=== PATIENT | male | born 1965 | race Caucasian/White ===

== ENCOUNTER 2021-03-01 14:39 | Emergency (ER) | payer MEDICAID ==
[~2021-03-01] VITALS: Ht 175.3 cm; Wt 68.2 kg
[2021-03-01] MEDS ORDERED: OLAN10TA74 PO (14:52)
[2021-03-01] MEDS ORDERED: OLAN2.5T29 PO (14:52)
[2021-03-01 20:27] LABS: BASOPHILS % (AUTO) 0.9 % (0.0-2.0); EOSINOPHILS % (AUTO) 1.9 % (1.0-6.0); HEMATOCRIT 35.2 % (41-53); HEMOGLOBIN 11.7 g/dL (13.5-17.5); LYMPHOCYTES # (AUTO) 1.8 K/uL (1.0-4.8); LYMPHOCYTES % (AUTO) 30.5 % (22.0-44.0); MEAN CORPUSCULAR HEMOGLOBIN 32.2 pg (26.0-34.0); MEAN CORPUSCULAR HGB CONC 33.2 G/dL (31.0-37.0); MEAN CORPUSCULAR VOLUME 97 fL (80-100); MONOCYTES # (AUTO) 0.4 K/uL (0.1-1.0); MONOCYTES % (AUTO) 7.6 % (2.0-9.0); NEUTROPHILS # (AUTO) 3.5 K/uL (1.8-7.7); NEUTROPHILS % (AUTO) 59.1 % (40.0-70.0); PLATELET COUNT (AUTO) 239 K/uL (150-450); RED BLOOD CELL COUNT(AUTO) 3.62 MIL/uL (4.50-5.90); RED CELL DISTRIBUTION WIDTH 14.8 % (11.5-14.5)
[2021-03-01 20:30] VITALS: BP 118/64
[2021-03-01 20:36] LABS: ANION GAP 7 mmol/L (8-16); CALCIUM, TOTAL 8.4 mg/dL (8.8-10.5); CARBON DIOXIDE 25 mmol/L (22-29); CHLORIDE 108 mmol/L (98-107); CREATININE 0.75 mg/dL (0.60-1.30); GLOMERULAR FILTR. RATE CALC > 60 mL/min (>60); GLUCOSE,RANDOM 78 mg/dL (70-110); POTASSIUM 3.6 mmol/L (3.5-5.1); SODIUM SERUM 140 mmol/L (136-145); UREA NITROGEN, BLOOD 11 mg/dL (7-18)
[2021-03-01 20:40] LABS: PROTHROMBIN TIME 11.1 SEC (9.4-11.6)
[2021-03-01 20:46] LABS: B-TYPE NATRIURETIC PEPTIDE 39 pg/mL (0-100)
[2021-03-01 21:01] LABS: ALANINE AMINOTRANSFERASE 20 U/L (12-78); ALKALINE PHOSPHATASE 70 U/L (46-116); ASPARTATE AMINOTRANSFERASE 22 U/L (15-37); BILIRUBIN,TOTAL 0.5 mg/dL (0.1-1.0); CREATINE KINASE, TOTAL ONLY 200 U/L (39-308); TOTAL PROTEIN, SERUM 6.1 g/dL (6.4-8.2)
== END 2021-03-01 22:33 | disposition home or self-care (01) ==
LOC: EMS 14:48
DX: E46 Unspecified protein-calorie malnutrition (principal); R60.0 Localized edema
CPT/HCPCS: 71045; 80053; 82550; 83880; 84484; 85025; 85610; 85730; 93005; 93970; 99285

== ENCOUNTER 2021-03-11 15:46 | Inpatient (IN) | payer MEDICARE, MEDICAID ==
[~2021-03-11] VITALS: Ht 175.3 cm; Wt 78.1 kg
[~2021-03-11 15:46] MED LIST: OLAN10TA74 PO; OLAN2.5T29 PO
[2021-03-11 16:40] LABS: BASOPHILS % (AUTO) 0.6 % (0.0-2.0); EOSINOPHILS % (AUTO) 0.7 % (1.0-6.0); HEMATOCRIT 36.8 % (41-53); LYMPHOCYTES # (AUTO) 1.6 K/uL (1.0-4.8); LYMPHOCYTES % (AUTO) 24.2 % (22.0-44.0); MEAN CORPUSCULAR HEMOGLOBIN 31.5 pg (26.0-34.0); MEAN CORPUSCULAR HGB CONC 32.7 G/dL (31.0-37.0); MEAN CORPUSCULAR VOLUME 97 fL (80-100); MONOCYTES # (AUTO) 0.4 K/uL (0.1-1.0); MONOCYTES % (AUTO) 6.4 % (2.0-9.0); NEUTROPHILS # (AUTO) 4.5 K/uL (1.8-7.7); NEUTROPHILS % (AUTO) 68.1 % (40.0-70.0); PLATELET COUNT (AUTO) 314 K/uL (150-450); RED BLOOD CELL COUNT(AUTO) 3.82 MIL/uL (4.50-5.90); RED CELL DISTRIBUTION WIDTH 14.9 % (11.5-14.5)
[2021-03-11 16:41] LABS: COVID AG,FIA SOURCE NASOPHARYNGEAL
[2021-03-11 16:49] LABS: ANION GAP 3 mmol/L (8-16); CALCIUM, TOTAL 8.3 mg/dL (8.8-10.5); CARBON DIOXIDE 25 mmol/L (22-29); CHLORIDE 106 mmol/L (98-107); CREATININE 0.82 mg/dL (0.60-1.30); GLOMERULAR FILTR. RATE CALC > 60 mL/min (>60); GLUCOSE,RANDOM 85 mg/dL (70-110); POTASSIUM 4.2 mmol/L (3.5-5.1); SODIUM SERUM 134 mmol/L (136-145); UREA NITROGEN, BLOOD 16 mg/dL (7-18)
[2021-03-11 16:54] LABS: ALANINE AMINOTRANSFERASE 30 U/L (12-78); ALBUMIN 2.9 g/dL (3.4-5.0); ALKALINE PHOSPHATASE 67 U/L (46-116); ASPARTATE AMINOTRANSFERASE 23 U/L (15-37); BILIRUBIN,TOTAL 0.5 mg/dL (0.1-1.0); TOTAL PROTEIN, SERUM 6.1 g/dL (6.4-8.2)
[2021-03-12 01:32] LABS: CHOL/HDL RATIO 3.8 (4.2-7.3); CHOLESTEROL 151 mg/dL (131-200); HDL CHOLESTEROL 40 mg/dL (40-60); LDL CHOL (CALC.) 101 mg/dL (0-130); TRIGLYCERIDES 52 mg/dL (15-150)
[2021-03-12] MEDS: LORazepam 2 MG TABLET PO PRN ×2 (04:06→17:55)
[2021-03-12] MEDS: HALOPERIDOL 5 MG TABLET PO PRN ×2 (04:06→17:55)
[2021-03-12] MEDS ORDERED: ACETAMINOPHEN 325 MG TABLET PO ONE (13:30)
[2021-03-13] MEDS ORDERED: NICOTINE 14 MG/24 HOUR PATCH TD PRN (07:30)
[2021-03-13] MEDS ORDERED: ONDANSETRON HCL 4 MG TABLET PO PRN (07:30)
[2021-03-13] MEDS ORDERED: MAGNESIUM HYDROXIDE SUSPENSION 30 ML UDCUP PO PRN (07:30)
[2021-03-13] MEDS ORDERED: GuaiFENesin/D-METHORPHAN [SUGAR-FREE] 200-20MG/10 ML SYRUP UDCUP PO PRN (07:30)
[2021-03-13] MEDS ORDERED: PETROLATUM,WHITE 28 GM JELLY TP PRN (07:30)
[2021-03-13] MEDS ORDERED: ALBUTEROL SULFATE HFA 90 MCG/PUFF 8 GM INHALER IH PRN (07:30)
[2021-03-13] MEDS ORDERED: CloNIDine HCL 0.1 MG TABLET PO PRN (07:30)
[2021-03-13] MEDS ORDERED: LOPERAMIDE HCL 2 MG CAPSULE PO PRN (07:30)
[2021-03-13] MEDS ORDERED: DOCUSATE SODIUM 100 MG CAPSULE PO PRN (07:30)
[2021-03-13] MEDS: HALOPERIDOL 5 MG TABLET PO PRN ×2 (08:16→12:49)
[2021-03-13] MEDS: LORazepam 2 MG TABLET PO PRN ×2 (08:16→12:49)
[2021-03-13] MEDS: NICOTINE 14 MG/24 HOUR PATCH TD SCH (08:17)
[2021-03-13] MEDS ORDERED: NICOTINE 21 MG/24 HOUR PATCH TD SCH (09:00)
[2021-03-13 09:21] VITALS: BP 108/61
[2021-03-13] MEDS ORDERED: OLANZapine 2.5 MG TABLET PO SCH (10:00)
[2021-03-13] MEDS: OLANZapine 2.5 MG TABLET PO SCH (15:25)
[2021-03-13 16:11] VITALS: BP 102/72
[2021-03-13] MEDS: OLANZapine 10 MG TABLET PO SCH (20:34)
[2021-03-14 03:38] VITALS: BP 110/68
[2021-03-14 08:18] VITALS: BP 106/76
[2021-03-14] MEDS ORDERED: OLANZapine 2.5 MG TABLET PO SCH (09:00)
[2021-03-14] MEDS: OLANZapine 2.5 MG TABLET PO SCH (09:07)
[2021-03-14] MEDS: NICOTINE 14 MG/24 HOUR PATCH TD SCH (09:07)
[2021-03-14] MEDS: LORazepam 2 MG TABLET PO PRN (13:28)
[2021-03-14 16:27] VITALS: BP 101/63
[2021-03-14] MEDS: OLANZapine 10 MG TABLET PO SCH (20:34)
[2021-03-15 00:57] VITALS: BP 108/72
[2021-03-15] MEDS: LORazepam 2 MG TABLET PO PRN (08:58)
[2021-03-15] MEDS: OLANZapine 2.5 MG TABLET PO SCH (08:58)
[2021-03-15] MEDS: NICOTINE 14 MG/24 HOUR PATCH TD SCH (08:59)
[2021-03-15 09:32] VITALS: BP 116/72
[2021-03-15 16:18] VITALS: BP 119/66
[2021-03-15] MEDS: OLANZapine 10 MG TABLET PO SCH (20:12)
[2021-03-16 03:55] VITALS: BP 112/68
[2021-03-16] MEDS: LORazepam 2 MG TABLET PO PRN ×3 (05:57→20:05)
[2021-03-16] MEDS: OLANZapine 2.5 MG TABLET PO SCH (08:32)
[2021-03-16] MEDS: NICOTINE 14 MG/24 HOUR PATCH TD SCH (08:33)
[2021-03-16 09:41] VITALS: BP 117/85
[2021-03-16] MEDS ORDERED: HALOPERIDOL LACTATE 5 MG/ML VIAL IM ONE (10:15)
[2021-03-16] MEDS ORDERED: DiphenhydrAMINE HCL 50 MG/ML VIAL IM ONE (10:15)
[2021-03-16] MEDS ORDERED: LORazepam 2 MG/ML VIAL IM ONE (10:15)
[2021-03-16] MEDS: BACITRACIN 28 GM OINTMENT TP SCH ×2 (12:54→16:02)
[2021-03-16] MEDS: MAG HYDROX/AL HYDROX/SIMETH ES 30 ML SUSPENSION UDCUP PO PRN (13:27)
[2021-03-16] MEDS: HALOPERIDOL 5 MG TABLET PO PRN (16:01)
[2021-03-16 16:25] VITALS: BP 104/64
[2021-03-16] MEDS: OLANZapine 10 MG TABLET PO SCH (20:05)
[2021-03-17 00:39] VITALS: BP 112/87
[2021-03-17] MEDS: ZOLPIDEM TARTRATE 10 MG TABLET PO PRN (00:45)
[2021-03-17] MEDS: IBUPROFEN 400 MG TABLET PO PRN (00:46)
[2021-03-17 08:21] VITALS: BP 111/68
[2021-03-17] MEDS: LORazepam 2 MG TABLET PO PRN ×2 (08:30→16:20)
[2021-03-17] MEDS: OLANZapine 5 MG TABLET PO SCH (08:58)
[2021-03-17] MEDS: NICOTINE 14 MG/24 HOUR PATCH TD SCH (08:58)
[2021-03-17] MEDS: BACITRACIN 28 GM OINTMENT TP SCH ×4 (09:03→16:24)
[2021-03-17] MEDS ORDERED: BACITRACIN 28 GM OINTMENT TP SCH (10:30)
[2021-03-17 16:13] VITALS: BP 105/67
[2021-03-17] MEDS: HALOPERIDOL 5 MG TABLET PO PRN (16:20)
[2021-03-17] MEDS: OLANZapine 10 MG TABLET PO SCH (20:17)
[2021-03-18 04:37] VITALS: BP 114/72
[2021-03-18] MEDS: OLANZapine 5 MG TABLET PO SCH (07:58)
[2021-03-18] MEDS: NICOTINE 14 MG/24 HOUR PATCH TD SCH (07:59)
[2021-03-18] MEDS: LORazepam 2 MG TABLET PO PRN ×3 (08:04→17:17)
[2021-03-18 08:38] VITALS: BP 115/82
[2021-03-18] MEDS: BACITRACIN 28 GM OINTMENT TP SCH ×4 (08:47→17:04)
[2021-03-18] MEDS: HALOPERIDOL 5 MG TABLET PO PRN ×2 (14:37→19:05)
[2021-03-18 16:20] VITALS: BP 104/65
[2021-03-18] MEDS: MAG HYDROX/AL HYDROX/SIMETH ES 30 ML SUSPENSION UDCUP PO PRN (18:44)
[2021-03-18] MEDS: OLANZapine 10 MG TABLET PO SCH (20:28)
[2021-03-18] MEDS: ZOLPIDEM TARTRATE 10 MG TABLET PO PRN (20:29)
[2021-03-19 04:08] VITALS: BP 107/70
[2021-03-19] MEDS: MULTIVITAMINS WITH MINERALS, THERAPEUTIC TABLET PO SCH (08:21)
[2021-03-19] MEDS: NICOTINE 14 MG/24 HOUR PATCH TD SCH (08:21)
[2021-03-19] MEDS: OLANZapine 5 MG TABLET PO SCH (08:21)
[2021-03-19] MEDS: LORazepam 2 MG TABLET PO PRN (08:21)
[2021-03-19] MEDS: BACITRACIN 28 GM OINTMENT TP SCH ×4 (08:26→16:19)
[2021-03-19 08:44] VITALS: BP 121/78
[2021-03-19] MEDS: HALOPERIDOL 5 MG TABLET PO PRN ×3 (09:14→23:41)
[2021-03-19 16:07] VITALS: BP 105/76
[2021-03-19] MEDS: OLANZapine 10 MG RAPDIS TABLET PO SCH (20:30)
[2021-03-20 01:09] VITALS: BP 121/87
[2021-03-20] MEDS: MULTIVITAMINS WITH MINERALS, THERAPEUTIC TABLET PO SCH (08:01)
[2021-03-20] MEDS: OLANZapine 5 MG RAPDIS TABLET PO SCH (08:01)
[2021-03-20] MEDS: LORazepam 2 MG TABLET PO PRN ×2 (08:01→22:55)
[2021-03-20] MEDS: NICOTINE 14 MG/24 HOUR PATCH TD SCH (08:05)
[2021-03-20] MEDS: BACITRACIN 28 GM OINTMENT TP SCH ×2 (08:05→17:02)
[2021-03-20 08:30] VITALS: BP 103/71
[2021-03-20 13:00] VITALS: BP 110/74
[2021-03-20] MEDS: HALOPERIDOL 5 MG TABLET PO PRN ×2 (13:02→22:55)
[2021-03-20 17:19] VITALS: BP 100/70
[2021-03-20] MEDS: OLANZapine 10 MG RAPDIS TABLET PO SCH (20:02)
[2021-03-21 00:34] VITALS: BP 120/85
[2021-03-21] MEDS: LORazepam 2 MG TABLET PO PRN ×2 (03:12→20:42)
[2021-03-21] MEDS: HALOPERIDOL 5 MG TABLET PO PRN ×2 (03:12→10:57)
[2021-03-21 08:14] VITALS: BP 107/71
[2021-03-21] MEDS: NICOTINE 14 MG/24 HOUR PATCH TD SCH (08:36)
[2021-03-21] MEDS: MULTIVITAMINS WITH MINERALS, THERAPEUTIC TABLET PO SCH (08:36)
[2021-03-21] MEDS: OLANZapine 5 MG RAPDIS TABLET PO SCH (08:36)
[2021-03-21] MEDS: BACITRACIN 28 GM OINTMENT TP SCH ×2 (08:36→16:49)
[2021-03-21] MEDS ORDERED: HALOPERIDOL LACTATE 5 MG/ML VIAL ONE (14:54)
[2021-03-21] MEDS ORDERED: LORazepam 2 MG/ML VIAL ONE (14:54)
[2021-03-21] MEDS ORDERED: DiphenhydrAMINE HCL 50 MG/ML VIAL ONE (14:54)
[2021-03-21] MEDS ORDERED: LORazepam 2 MG/ML VIAL IM ONE (15:00)
[2021-03-21] MEDS ORDERED: DiphenhydrAMINE HCL 50 MG/ML VIAL IM ONE (15:00)
[2021-03-21] MEDS ORDERED: HALOPERIDOL LACTATE 5 MG/ML VIAL IM ONE (15:00)
[2021-03-21 16:19] VITALS: BP 121/82
[2021-03-21] MEDS: ZOLPIDEM TARTRATE 10 MG TABLET PO PRN (20:42)
[2021-03-21] MEDS: OLANZapine 10 MG RAPDIS TABLET PO SCH (20:56)
[2021-03-22 04:30] VITALS: BP 117/72
[2021-03-22] MEDS: LORazepam 2 MG TABLET PO PRN ×2 (08:15→16:57)
[2021-03-22] MEDS: NICOTINE 14 MG/24 HOUR PATCH TD SCH (08:51)
[2021-03-22] MEDS: OLANZapine 10 MG RAPDIS TABLET PO SCH ×2 (08:51→21:32)
[2021-03-22] MEDS: BACITRACIN 28 GM OINTMENT TP SCH ×2 (08:51→17:09)
[2021-03-22] MEDS: MULTIVITAMINS WITH MINERALS, THERAPEUTIC TABLET PO SCH ×2 (08:51→21:32)
[2021-03-22 09:15] VITALS: BP 107/71
[2021-03-22] MEDS: IBUPROFEN 400 MG TABLET PO PRN (10:15)
[2021-03-22] MEDS: HALOPERIDOL 5 MG TABLET PO PRN ×2 (10:15→16:57)
[2021-03-22 16:24] VITALS: BP 102/70
[2021-03-23 05:00] VITALS: BP 111/61
[2021-03-23] MEDS: ACETAMINOPHEN 325 MG TABLET PO PRN ×2 (05:01→16:04)
[2021-03-23] MEDS: HALOPERIDOL 5 MG TABLET PO PRN ×2 (06:42→14:37)
[2021-03-23] MEDS: LORazepam 2 MG TABLET PO PRN ×3 (06:42→15:58)
[2021-03-23] MEDS: NICOTINE 14 MG/24 HOUR PATCH TD SCH (08:09)
[2021-03-23] MEDS: OLANZapine 10 MG RAPDIS TABLET PO SCH ×2 (08:09→20:28)
[2021-03-23] MEDS: BACITRACIN 28 GM OINTMENT TP SCH ×2 (08:18→16:04)
[2021-03-23 08:23] VITALS: BP 138/86
[2021-03-23] MEDS: MAG HYDROX/AL HYDROX/SIMETH ES 30 ML SUSPENSION UDCUP PO PRN (09:37)
[2021-03-23 16:46] VITALS: BP 114/74
[2021-03-23] MEDS: VALPROIC ACID 250 MG/5 ML SOLUTION UDCUP PO SCH (20:29)
[2021-03-23] MEDS: ZOLPIDEM TARTRATE 10 MG TABLET PO PRN (20:44)
[2021-03-24 05:26] VITALS: BP 107/68
[2021-03-24] MEDS: LORazepam 2 MG TABLET PO PRN ×2 (08:15→13:14)
[2021-03-24 08:34] VITALS: BP 142/84
[2021-03-24] MEDS: NICOTINE 14 MG/24 HOUR PATCH TD SCH (08:35)
[2021-03-24] MEDS: VALPROIC ACID 250 MG/5 ML SOLUTION UDCUP PO SCH ×2 (08:35→21:33)
[2021-03-24] MEDS: OLANZapine 10 MG RAPDIS TABLET PO SCH ×2 (08:35→21:33)
[2021-03-24] MEDS: MULTIVITAMINS WITH MINERALS, THERAPEUTIC TABLET PO SCH (08:35)
[2021-03-24] MEDS: BACITRACIN 28 GM OINTMENT TP SCH ×2 (08:36→16:10)
[2021-03-24] MEDS: HALOPERIDOL 5 MG TABLET PO PRN ×4 (10:10→23:54)
[2021-03-24 16:19] VITALS: BP 114/79
[2021-03-24] MEDS: ZOLPIDEM TARTRATE 10 MG TABLET PO PRN (23:55)
[2021-03-25 00:07] VITALS: BP 115/76
[2021-03-25] MEDS: HALOPERIDOL 5 MG TABLET PO PRN ×2 (08:05→13:18)
[2021-03-25] MEDS: LORazepam 2 MG TABLET PO PRN ×2 (08:05→14:05)
[2021-03-25 08:30] VITALS: BP 110/82
[2021-03-25] MEDS: VALPROIC ACID 250 MG/5 ML SOLUTION UDCUP PO SCH ×2 (08:39→20:12)
[2021-03-25] MEDS: MULTIVITAMINS WITH MINERALS, THERAPEUTIC TABLET PO SCH (08:39)
[2021-03-25] MEDS: OLANZapine 10 MG RAPDIS TABLET PO SCH ×2 (08:39→20:12)
[2021-03-25] MEDS: NICOTINE 14 MG/24 HOUR PATCH TD SCH (08:42)
[2021-03-25] MEDS: BACITRACIN 28 GM OINTMENT TP SCH ×2 (08:42→16:09)
[2021-03-25 19:41] VITALS: BP 106/70
[2021-03-25] MEDS: ZOLPIDEM TARTRATE 10 MG TABLET PO PRN (20:12)
[2021-03-26 04:54] VITALS: BP 120/78
[2021-03-26] MEDS: LORazepam 2 MG TABLET PO PRN (08:00)
[2021-03-26] MEDS: BACITRACIN 28 GM OINTMENT TP SCH ×2 (08:29→16:26)
[2021-03-26] MEDS: NICOTINE 14 MG/24 HOUR PATCH TD SCH (08:29)
[2021-03-26] MEDS: VALPROIC ACID 250 MG/5 ML SOLUTION UDCUP PO SCH ×2 (08:29→20:00)
[2021-03-26] MEDS: OLANZapine 10 MG RAPDIS TABLET PO SCH ×2 (08:29→20:00)
[2021-03-26] MEDS: MULTIVITAMINS WITH MINERALS, THERAPEUTIC TABLET PO SCH (08:29)
[2021-03-26 08:36] VITALS: BP 130/79
[2021-03-26] MEDS: HALOPERIDOL 5 MG TABLET PO PRN ×2 (09:21→13:37)
[2021-03-26 16:21] VITALS: BP 116/76
[2021-03-27 01:50] VITALS: BP 124/78
[2021-03-27] MEDS: HALOPERIDOL 5 MG TABLET PO PRN ×2 (08:05→13:54)
[2021-03-27] MEDS: LORazepam 2 MG TABLET PO PRN (08:05)
[2021-03-27] MEDS: NICOTINE 14 MG/24 HOUR PATCH TD SCH (08:33)
[2021-03-27] MEDS: BACITRACIN 28 GM OINTMENT TP SCH ×2 (08:33→16:14)
[2021-03-27] MEDS: OLANZapine 10 MG RAPDIS TABLET PO SCH ×2 (08:33→20:06)
[2021-03-27] MEDS: MULTIVITAMINS WITH MINERALS, THERAPEUTIC TABLET PO SCH (08:33)
[2021-03-27] MEDS: VALPROIC ACID 250 MG/5 ML SOLUTION UDCUP PO SCH ×2 (08:33→20:06)
[2021-03-27] MEDS: MAG HYDROX/AL HYDROX/SIMETH ES 30 ML SUSPENSION UDCUP PO PRN (14:13)
[2021-03-27 16:23] VITALS: BP 114/71
[2021-03-27] MEDS: IBUPROFEN 400 MG TABLET PO PRN (21:43)
[2021-03-28] MEDS: HALOPERIDOL 5 MG TABLET PO PRN ×3 (00:16→19:17)
[2021-03-28 06:30] VITALS: BP 110/66
[2021-03-28] MEDS: OLANZapine 10 MG RAPDIS TABLET PO SCH ×2 (08:20→21:04)
[2021-03-28] MEDS: VALPROIC ACID 250 MG/5 ML SOLUTION UDCUP PO SCH ×3 (08:20→21:04)
[2021-03-28] MEDS: NICOTINE 14 MG/24 HOUR PATCH TD SCH (08:20)
[2021-03-28] MEDS: MULTIVITAMINS WITH MINERALS, THERAPEUTIC TABLET PO SCH (08:20)
[2021-03-28 08:31] VITALS: BP 121/78
[2021-03-28] MEDS: BACITRACIN 28 GM OINTMENT TP SCH ×2 (09:57→17:43)
[2021-03-28] MEDS: IBUPROFEN 400 MG TABLET PO PRN (13:30)
[2021-03-28 16:25] VITALS: BP 117/78
[2021-03-29 00:12] VITALS: BP 120/79
[2021-03-29] MEDS: OLANZapine 10 MG RAPDIS TABLET PO SCH ×2 (08:03→21:27)
[2021-03-29] MEDS: NICOTINE 14 MG/24 HOUR PATCH TD SCH (08:03)
[2021-03-29] MEDS: VALPROIC ACID 250 MG/5 ML SOLUTION UDCUP PO SCH ×2 (08:03→21:27)
[2021-03-29] MEDS: MULTIVITAMINS WITH MINERALS, THERAPEUTIC TABLET PO SCH (08:03)
[2021-03-29] MEDS: BACITRACIN 28 GM OINTMENT TP SCH ×2 (08:04→16:30)
[2021-03-29 08:27] VITALS: BP 118/82
[2021-03-29 16:29] VITALS: BP 103/65
[2021-03-29] MEDS: ZOLPIDEM TARTRATE 10 MG TABLET PO PRN (20:51)
[2021-03-29] MEDS: LORazepam 2 MG TABLET PO PRN (20:51)
[2021-03-30 06:06] VITALS: BP 104/73
[2021-03-30] MEDS: BACITRACIN 28 GM OINTMENT TP SCH ×2 (08:29→17:00)
[2021-03-30] MEDS: MULTIVITAMINS WITH MINERALS, THERAPEUTIC TABLET PO SCH (08:29)
[2021-03-30] MEDS: LORazepam 2 MG TABLET PO PRN (08:29)
[2021-03-30] MEDS: OLANZapine 10 MG RAPDIS TABLET PO SCH ×2 (08:30→20:31)
[2021-03-30 08:32] VITALS: BP 115/80
[2021-03-30] MEDS: NICOTINE 14 MG/24 HOUR PATCH TD SCH (08:32)
[2021-03-30] MEDS: VALPROIC ACID 250 MG/5 ML SOLUTION UDCUP PO SCH ×2 (08:33→20:31)
[2021-03-30] MEDS: HALOPERIDOL 5 MG TABLET PO PRN (12:11)
[2021-03-30 16:30] VITALS: BP 105/76
[2021-03-31 05:37] VITALS: BP 118/78
[2021-03-31] MEDS: VALPROIC ACID 250 MG/5 ML SOLUTION UDCUP PO SCH ×2 (08:57→20:23)
[2021-03-31] MEDS: OLANZapine 10 MG RAPDIS TABLET PO SCH ×2 (08:57→20:23)
[2021-03-31] MEDS: MULTIVITAMINS WITH MINERALS, THERAPEUTIC TABLET PO SCH (08:57)
[2021-03-31] MEDS: NICOTINE 14 MG/24 HOUR PATCH TD SCH (08:58)
[2021-03-31] MEDS: BACITRACIN 28 GM OINTMENT TP SCH ×2 (08:58→17:00)
[2021-03-31 09:15] VITALS: BP 119/78
[2021-03-31] MEDS ORDERED: TUBERCULIN, PURIFIED PROTEIN DERIVATIVE 5 TU/0.1 ML SYRINGE ID ONE (11:00)
[2021-03-31] MEDS: ACETAMINOPHEN 325 MG TABLET PO PRN (14:10)
[2021-03-31 16:28] VITALS: BP 105/74
[2021-03-31] MEDS: HALOPERIDOL 5 MG TABLET PO PRN (20:23)
[2021-03-31] MEDS: ZOLPIDEM TARTRATE 10 MG TABLET PO PRN (21:42)
[2021-04-01 01:19] VITALS: BP 162/78
[2021-04-01] MEDS: HALOPERIDOL 5 MG TABLET PO PRN (06:44)
[2021-04-01] MEDS ORDERED: HALOPERIDOL LACTATE 5 MG/ML VIAL ONE (08:33)
[2021-04-01] MEDS ORDERED: LORazepam 2 MG/ML VIAL ONE (08:33)
[2021-04-01] MEDS ORDERED: DiphenhydrAMINE HCL 50 MG/ML VIAL ONE (08:34)
[2021-04-01] MEDS ORDERED: HALOPERIDOL LACTATE 5 MG/ML VIAL IM ONE (08:45)
[2021-04-01] MEDS ORDERED: LORazepam 2 MG/ML VIAL IM ONE (08:45)
[2021-04-01] MEDS ORDERED: DiphenhydrAMINE HCL 50 MG/ML VIAL IM ONE (08:45)
[2021-04-01] MEDS: OLANZapine 10 MG RAPDIS TABLET PO SCH ×2 (08:56→20:57)
[2021-04-01] MEDS: MULTIVITAMINS WITH MINERALS, THERAPEUTIC TABLET PO SCH (08:56)
[2021-04-01] MEDS: NICOTINE 14 MG/24 HOUR PATCH TD SCH (08:56)
[2021-04-01] MEDS: VALPROIC ACID 250 MG/5 ML SOLUTION UDCUP PO SCH ×2 (08:56→20:58)
[2021-04-01] MEDS: BACITRACIN 28 GM OINTMENT TP SCH ×2 (08:56→16:44)
[2021-04-01 10:42] VITALS: BP 110/73
[2021-04-01 16:26] VITALS: BP 113/77
[2021-04-02 00:14] VITALS: BP 118/76
[2021-04-02] MEDS: VALPROIC ACID 250 MG/5 ML SOLUTION UDCUP PO SCH ×2 (08:39→19:59)
[2021-04-02] MEDS: BACITRACIN 28 GM OINTMENT TP SCH ×2 (08:39→16:03)
[2021-04-02] MEDS: NICOTINE 14 MG/24 HOUR PATCH TD SCH (08:39)
[2021-04-02] MEDS: MULTIVITAMINS WITH MINERALS, THERAPEUTIC TABLET PO SCH (08:39)
[2021-04-02] MEDS: OLANZapine 10 MG RAPDIS TABLET PO SCH ×2 (08:39→19:59)
[2021-04-02] MEDS: LORazepam 2 MG TABLET PO PRN ×2 (08:40→16:09)
[2021-04-02 10:24] VITALS: BP 115/75
[2021-04-02] MEDS: HALOPERIDOL 5 MG TABLET PO PRN (12:52)
[2021-04-02 17:20] VITALS: BP 113/73
[2021-04-03 04:00] VITALS: BP 116/74
[2021-04-03 08:39] VITALS: BP 132/77
[2021-04-03] MEDS: VALPROIC ACID 250 MG/5 ML SOLUTION UDCUP PO SCH ×2 (09:10→20:12)
[2021-04-03] MEDS: NICOTINE 14 MG/24 HOUR PATCH TD SCH (09:10)
[2021-04-03] MEDS: LORazepam 2 MG TABLET PO PRN (09:11)
[2021-04-03] MEDS: OLANZapine 10 MG RAPDIS TABLET PO SCH ×2 (09:11→20:12)
[2021-04-03] MEDS: HALOPERIDOL 5 MG TABLET PO PRN (09:11)
[2021-04-03] MEDS: MULTIVITAMINS WITH MINERALS, THERAPEUTIC TABLET PO SCH (09:11)
[2021-04-03] MEDS: BACITRACIN 28 GM OINTMENT TP SCH ×2 (09:16→17:01)
[2021-04-03 16:32] VITALS: BP 113/79
[2021-04-03] MEDS: BENZTROPINE MESYLATE 1 MG TABLET PO SCH (17:01)
[2021-04-04 01:52] VITALS: BP 121/77
[2021-04-04] MEDS: ACETAMINOPHEN 325 MG TABLET PO PRN (03:22)
[2021-04-04] MEDS: NICOTINE 14 MG/24 HOUR PATCH TD SCH (08:06)
[2021-04-04] MEDS: BENZTROPINE MESYLATE 1 MG TABLET PO SCH ×2 (08:07→16:03)
[2021-04-04] MEDS: OLANZapine 10 MG RAPDIS TABLET PO SCH ×2 (08:07→20:02)
[2021-04-04] MEDS: MULTIVITAMINS WITH MINERALS, THERAPEUTIC TABLET PO SCH (08:07)
[2021-04-04 08:25] VITALS: BP 119/73
[2021-04-04] MEDS: VALPROIC ACID 250 MG/5 ML SOLUTION UDCUP PO SCH ×2 (09:00→20:02)
[2021-04-04] MEDS: BACITRACIN 28 GM OINTMENT TP SCH ×2 (09:25→16:03)
[2021-04-04 16:33] VITALS: BP 124/86
[2021-04-04] MEDS: MAG HYDROX/AL HYDROX/SIMETH ES 30 ML SUSPENSION UDCUP PO PRN (21:39)
[2021-04-05] MEDS: VALPROIC ACID 250 MG/5 ML SOLUTION UDCUP PO SCH ×2 (08:07→20:04)
[2021-04-05] MEDS: BENZTROPINE MESYLATE 1 MG TABLET PO SCH ×2 (08:08→16:07)
[2021-04-05] MEDS: OLANZapine 10 MG RAPDIS TABLET PO SCH ×2 (08:08→20:04)
[2021-04-05] MEDS: NICOTINE 14 MG/24 HOUR PATCH TD SCH (08:08)
[2021-04-05] MEDS: MULTIVITAMINS WITH MINERALS, THERAPEUTIC TABLET PO SCH (08:08)
[2021-04-05] MEDS: BACITRACIN 28 GM OINTMENT TP SCH ×2 (08:10→16:17)
[2021-04-05 09:11] VITALS: BP 119/90
[2021-04-05] MEDS: IBUPROFEN 400 MG TABLET PO PRN (14:07)
[2021-04-05 16:14] VITALS: BP 104/73
[2021-04-05] MEDS: LORazepam 2 MG TABLET PO PRN (16:16)
[2021-04-06 05:43] VITALS: BP 112/87
[2021-04-06] MEDS: BACITRACIN 28 GM OINTMENT TP SCH ×2 (09:00→16:38)
[2021-04-06] MEDS: NICOTINE 14 MG/24 HOUR PATCH TD SCH (09:00)
[2021-04-06] MEDS: MULTIVITAMINS WITH MINERALS, THERAPEUTIC TABLET PO SCH (09:00)
[2021-04-06] MEDS: BENZTROPINE MESYLATE 1 MG TABLET PO SCH ×2 (09:00→16:38)
[2021-04-06] MEDS: VALPROIC ACID 250 MG/5 ML SOLUTION UDCUP PO SCH ×2 (09:00→21:07)
[2021-04-06] MEDS: OLANZapine 10 MG RAPDIS TABLET PO SCH ×2 (09:00→21:06)
[2021-04-06 09:47] VITALS: BP 111/78
[2021-04-06 16:33] VITALS: BP 118/79
[2021-04-07 02:50] VITALS: BP 110/76
[2021-04-07] MEDS: VALPROIC ACID 250 MG/5 ML SOLUTION UDCUP PO SCH ×2 (08:43→21:21)
[2021-04-07] MEDS: NICOTINE 14 MG/24 HOUR PATCH TD SCH (08:44)
[2021-04-07] MEDS: OLANZapine 10 MG RAPDIS TABLET PO SCH (08:45)
[2021-04-07] MEDS ORDERED: DiphenhydrAMINE HCL 50 MG/ML VIAL IM ONE (09:00)
[2021-04-07] MEDS: MULTIVITAMINS WITH MINERALS, THERAPEUTIC TABLET PO SCH (09:00)
[2021-04-07] MEDS ORDERED: LORazepam 2 MG/ML VIAL IM ONE (09:00)
[2021-04-07] MEDS ORDERED: HALOPERIDOL LACTATE 5 MG/ML VIAL IM ONE (09:00)
[2021-04-07 09:37] VITALS: BP 127/89
[2021-04-07] MEDS: BACITRACIN 28 GM OINTMENT TP SCH (16:32)
[2021-04-07] MEDS: BENZTROPINE MESYLATE 1 MG TABLET PO SCH (16:32)
[2021-04-07 18:43] VITALS: BP 111/76
[2021-04-07] MEDS: OLANZapine 5 MG RAPDIS TABLET PO SCH (21:20)
[2021-04-08 00:09] VITALS: BP 119/78
[2021-04-08] MEDS: LORazepam 2 MG TABLET PO PRN ×2 (01:36→23:40)
[2021-04-08] MEDS: ACETAMINOPHEN 325 MG TABLET PO PRN (03:57)
[2021-04-08] MEDS: VALPROIC ACID 250 MG/5 ML SOLUTION UDCUP PO SCH ×2 (08:33→20:07)
[2021-04-08] MEDS: OLANZapine 5 MG RAPDIS TABLET PO SCH ×2 (08:34→20:13)
[2021-04-08] MEDS: BACITRACIN 28 GM OINTMENT TP SCH ×2 (08:38→09:00)
[2021-04-08] MEDS: BENZTROPINE MESYLATE 1 MG TABLET PO SCH ×2 (08:39→16:45)
[2021-04-08] MEDS: NICOTINE 14 MG/24 HOUR PATCH TD SCH (08:39)
[2021-04-08] MEDS: MULTIVITAMINS WITH MINERALS, THERAPEUTIC TABLET PO SCH (08:40)
[2021-04-08 09:57] VITALS: BP 107/71
[2021-04-08 16:21] VITALS: BP 106/72
[2021-04-08] MEDS: IBUPROFEN 400 MG TABLET PO PRN (21:58)
[2021-04-09 00:26] VITALS: BP 121/76
[2021-04-09] MEDS: IBUPROFEN 400 MG TABLET PO PRN ×2 (06:01→20:28)
[2021-04-09 08:22] VITALS: BP 136/81
[2021-04-09] MEDS: VALPROIC ACID 250 MG/5 ML SOLUTION UDCUP PO SCH ×2 (08:33→20:19)
[2021-04-09] MEDS: NICOTINE 14 MG/24 HOUR PATCH TD SCH (09:20)
[2021-04-09] MEDS: BENZTROPINE MESYLATE 1 MG TABLET PO SCH ×2 (09:20→16:08)
[2021-04-09] MEDS: OLANZapine 5 MG RAPDIS TABLET PO SCH ×2 (09:20→20:25)
[2021-04-09] MEDS: MULTIVITAMINS WITH MINERALS, THERAPEUTIC TABLET PO SCH (09:20)
[2021-04-09] MEDS: BACITRACIN 28 GM OINTMENT TP SCH ×3 (09:20→16:18)
[2021-04-09] MEDS: HALOPERIDOL 5 MG TABLET PO PRN (16:08)
[2021-04-09] MEDS: LORazepam 2 MG TABLET PO PRN ×2 (16:08→20:19)
[2021-04-09 16:30] VITALS: BP 101/65
[2021-04-10 04:16] VITALS: BP 117/84
[2021-04-10 08:14] VITALS: BP 120/84
[2021-04-10] MEDS: BENZTROPINE MESYLATE 1 MG TABLET PO SCH ×2 (09:00→16:59)
[2021-04-10] MEDS: MULTIVITAMINS WITH MINERALS, THERAPEUTIC TABLET PO SCH (09:00)
[2021-04-10] MEDS: OLANZapine 5 MG RAPDIS TABLET PO SCH ×2 (09:00→20:15)
[2021-04-10] MEDS: VALPROIC ACID 250 MG/5 ML SOLUTION UDCUP PO SCH ×2 (09:01→20:09)
[2021-04-10] MEDS: NICOTINE 14 MG/24 HOUR PATCH TD SCH (09:01)
[2021-04-10] MEDS: BACITRACIN 28 GM OINTMENT TP SCH ×2 (09:04→16:59)
[2021-04-10] MEDS: LORazepam 2 MG TABLET PO PRN ×2 (15:56→20:09)
[2021-04-10] MEDS: HALOPERIDOL 5 MG TABLET PO PRN (15:56)
[2021-04-10 16:18] VITALS: BP 108/65
[2021-04-10] MEDS: MAG HYDROX/AL HYDROX/SIMETH ES 30 ML SUSPENSION UDCUP PO PRN (21:38)
[2021-04-11] MEDS: LORazepam 2 MG TABLET PO PRN ×2 (00:06→17:09)
[2021-04-11 05:43] VITALS: BP 101/73
[2021-04-11] MEDS: OLANZapine 5 MG RAPDIS TABLET PO SCH ×2 (09:00→20:23)
[2021-04-11] MEDS: BENZTROPINE MESYLATE 1 MG TABLET PO SCH ×2 (09:39→17:09)
[2021-04-11] MEDS: MULTIVITAMINS WITH MINERALS, THERAPEUTIC TABLET PO SCH (09:39)
[2021-04-11] MEDS: VALPROIC ACID 250 MG/5 ML SOLUTION UDCUP PO SCH ×2 (09:39→20:23)
[2021-04-11 10:52] VITALS: BP 113/80
[2021-04-11] MEDS: NICOTINE 14 MG/24 HOUR PATCH TD SCH (11:03)
[2021-04-11] MEDS: BACITRACIN 28 GM OINTMENT TP SCH ×2 (11:03→17:00)
[2021-04-11 16:46] VITALS: BP 114/72
[2021-04-11] MEDS: HALOPERIDOL 5 MG TABLET PO PRN (17:09)
[2021-04-12] MEDS: MULTIVITAMINS WITH MINERALS, THERAPEUTIC TABLET PO SCH (08:13)
[2021-04-12] MEDS: BENZTROPINE MESYLATE 1 MG TABLET PO SCH ×2 (08:13→17:27)
[2021-04-12] MEDS: VALPROIC ACID 250 MG/5 ML SOLUTION UDCUP PO SCH ×2 (08:13→20:37)
[2021-04-12] MEDS: NICOTINE 14 MG/24 HOUR PATCH TD SCH (08:14)
[2021-04-12] MEDS: OLANZapine 5 MG RAPDIS TABLET PO SCH ×2 (09:00→20:38)
[2021-04-12] MEDS: BACITRACIN 28 GM OINTMENT TP SCH ×2 (09:00→17:27)
[2021-04-12 09:31] VITALS: BP 104/75
[2021-04-12 16:24] VITALS: BP 124/83
[2021-04-13 00:38] VITALS: BP 116/79
[2021-04-13 08:35] VITALS: BP 135/97
[2021-04-13] MEDS: BACITRACIN 28 GM OINTMENT TP SCH ×2 (08:50→16:47)
[2021-04-13] MEDS: BENZTROPINE MESYLATE 1 MG TABLET PO SCH ×2 (08:51→16:47)
[2021-04-13] MEDS: MULTIVITAMINS WITH MINERALS, THERAPEUTIC TABLET PO SCH (08:51)
[2021-04-13] MEDS: OLANZapine 5 MG RAPDIS TABLET PO SCH ×2 (08:53→21:04)
[2021-04-13] MEDS: VALPROIC ACID 250 MG/5 ML SOLUTION UDCUP PO SCH ×2 (08:53→21:03)
[2021-04-13] MEDS: NICOTINE 14 MG/24 HOUR PATCH TD SCH (08:55)
[2021-04-13] MEDS: MAG HYDROX/AL HYDROX/SIMETH ES 30 ML SUSPENSION UDCUP PO PRN (12:54)
[2021-04-13 16:35] VITALS: BP 109/78
[2021-04-13] MEDS: ZOLPIDEM TARTRATE 10 MG TABLET PO PRN (21:41)
[2021-04-14 00:45] VITALS: BP 115/72
[2021-04-14 08:26] VITALS: BP 117/78
[2021-04-14] MEDS: VALPROIC ACID 250 MG/5 ML SOLUTION UDCUP PO SCH ×2 (08:36→21:43)
[2021-04-14] MEDS: BENZTROPINE MESYLATE 1 MG TABLET PO SCH ×2 (08:37→16:56)
[2021-04-14] MEDS: NICOTINE 14 MG/24 HOUR PATCH TD SCH (08:37)
[2021-04-14] MEDS: MULTIVITAMINS WITH MINERALS, THERAPEUTIC TABLET PO SCH (08:37)
[2021-04-14] MEDS: OLANZapine 5 MG RAPDIS TABLET PO SCH ×2 (08:37→21:43)
[2021-04-14] MEDS: BACITRACIN 28 GM OINTMENT TP SCH ×2 (09:00→16:56)
[2021-04-15 04:40] VITALS: BP 116/72
[2021-04-15] MEDS: BENZTROPINE MESYLATE 1 MG TABLET PO SCH ×2 (08:21→16:08)
[2021-04-15] MEDS: MULTIVITAMINS WITH MINERALS, THERAPEUTIC TABLET PO SCH (08:21)
[2021-04-15] MEDS: OLANZapine 5 MG RAPDIS TABLET PO SCH ×2 (08:21→20:33)
[2021-04-15] MEDS: VALPROIC ACID 250 MG/5 ML SOLUTION UDCUP PO SCH ×2 (08:21→20:33)
[2021-04-15 08:24] VITALS: BP 127/85
[2021-04-15] MEDS: NICOTINE 14 MG/24 HOUR PATCH TD SCH (08:24)
[2021-04-15] MEDS: BACITRACIN 28 GM OINTMENT TP SCH ×2 (09:00→17:05)
[2021-04-15 16:11] VITALS: BP 108/71
[2021-04-16 00:52] VITALS: BP 121/79
[2021-04-16 08:26] VITALS: BP 129/85
[2021-04-16] MEDS: NICOTINE 14 MG/24 HOUR PATCH TD SCH (09:01)
[2021-04-16] MEDS: MULTIVITAMINS WITH MINERALS, THERAPEUTIC TABLET PO SCH (09:03)
[2021-04-16] MEDS: BENZTROPINE MESYLATE 1 MG TABLET PO SCH ×2 (09:03→16:37)
[2021-04-16] MEDS: OLANZapine 5 MG RAPDIS TABLET PO SCH ×2 (09:03→19:54)
[2021-04-16] MEDS: VALPROIC ACID 250 MG/5 ML SOLUTION UDCUP PO SCH ×2 (09:04→19:55)
[2021-04-16] MEDS: BACITRACIN 28 GM OINTMENT TP SCH ×2 (10:54→16:37)
[2021-04-16 16:17] VITALS: BP 122/84
[2021-04-16] MEDS: IBUPROFEN 400 MG TABLET PO PRN (16:44)
[2021-04-17 02:11] VITALS: BP 107/68
[2021-04-17] MEDS: OLANZapine 5 MG RAPDIS TABLET PO SCH ×2 (08:23→21:30)
[2021-04-17] MEDS: BENZTROPINE MESYLATE 1 MG TABLET PO SCH ×2 (08:23→16:46)
[2021-04-17] MEDS: MULTIVITAMINS WITH MINERALS, THERAPEUTIC TABLET PO SCH (08:23)
[2021-04-17] MEDS: VALPROIC ACID 250 MG/5 ML SOLUTION UDCUP PO SCH ×2 (08:24→21:29)
[2021-04-17] MEDS: NICOTINE 14 MG/24 HOUR PATCH TD SCH (08:24)
[2021-04-17] MEDS: BACITRACIN 28 GM OINTMENT TP SCH ×2 (08:27→16:52)
[2021-04-17 08:37] VITALS: BP 109/66
[2021-04-17] MEDS: LORazepam 2 MG TABLET PO PRN (08:46)
[2021-04-17 16:24] VITALS: BP 101/59
[2021-04-18 06:07] VITALS: BP 106/63
[2021-04-18 08:33] VITALS: BP 114/80
[2021-04-18] MEDS: NICOTINE 14 MG/24 HOUR PATCH TD SCH (08:52)
[2021-04-18] MEDS: VALPROIC ACID 250 MG/5 ML SOLUTION UDCUP PO SCH ×2 (08:53→21:04)
[2021-04-18] MEDS: OLANZapine 5 MG RAPDIS TABLET PO SCH ×2 (08:53→21:04)
[2021-04-18] MEDS: MULTIVITAMINS WITH MINERALS, THERAPEUTIC TABLET PO SCH (08:53)
[2021-04-18] MEDS: BENZTROPINE MESYLATE 1 MG TABLET PO SCH ×2 (08:53→16:46)
[2021-04-18] MEDS: BACITRACIN 28 GM OINTMENT TP SCH ×2 (08:55→16:46)
[2021-04-18 16:23] VITALS: BP 107/72
[2021-04-19 08:28] VITALS: BP 111/89
[2021-04-19] MEDS: VALPROIC ACID 250 MG/5 ML SOLUTION UDCUP PO SCH ×2 (08:51→20:43)
[2021-04-19] MEDS: MULTIVITAMINS WITH MINERALS, THERAPEUTIC TABLET PO SCH (08:52)
[2021-04-19] MEDS: OLANZapine 5 MG RAPDIS TABLET PO SCH ×2 (08:52→20:43)
[2021-04-19] MEDS: BENZTROPINE MESYLATE 1 MG TABLET PO SCH ×2 (08:52→16:24)
[2021-04-19] MEDS: BACITRACIN 28 GM OINTMENT TP SCH ×2 (09:00→16:24)
[2021-04-19] MEDS: NICOTINE 14 MG/24 HOUR PATCH TD SCH (09:00)
[2021-04-19 16:22] VITALS: BP 106/63
[2021-04-20 01:56] VITALS: BP 112/79
[2021-04-20] MEDS: OLANZapine 5 MG RAPDIS TABLET PO SCH ×2 (08:41→20:25)
[2021-04-20] MEDS: MULTIVITAMINS WITH MINERALS, THERAPEUTIC TABLET PO SCH (08:41)
[2021-04-20] MEDS: LORazepam 2 MG TABLET PO PRN ×2 (08:41→16:49)
[2021-04-20] MEDS: BENZTROPINE MESYLATE 1 MG TABLET PO SCH ×2 (08:41→16:49)
[2021-04-20] MEDS: VALPROIC ACID 250 MG/5 ML SOLUTION UDCUP PO SCH ×2 (08:42→20:25)
[2021-04-20] MEDS: BACITRACIN 28 GM OINTMENT TP SCH ×2 (08:42→16:50)
[2021-04-20] MEDS: NICOTINE 14 MG/24 HOUR PATCH TD SCH (08:42)
[2021-04-20 08:54] VITALS: BP 119/73
[2021-04-20 16:28] VITALS: BP 103/66
[2021-04-20] MEDS: HALOPERIDOL 5 MG TABLET PO PRN (16:49)
[2021-04-20] MEDS: ZOLPIDEM TARTRATE 10 MG TABLET PO PRN (20:25)
[2021-04-20 21:47] LABS: GLUCOMETER DEV NAME(LOC) POC.BV
[2021-04-21 00:49] VITALS: BP 110/80
[2021-04-21] MEDS: MULTIVITAMINS WITH MINERALS, THERAPEUTIC TABLET PO SCH (08:26)
[2021-04-21] MEDS: BENZTROPINE MESYLATE 1 MG TABLET PO SCH ×2 (08:26→16:47)
[2021-04-21] MEDS: VALPROIC ACID 250 MG/5 ML SOLUTION UDCUP PO SCH ×2 (08:26→20:19)
[2021-04-21] MEDS: OLANZapine 5 MG RAPDIS TABLET PO SCH ×2 (08:26→20:19)
[2021-04-21] MEDS: NICOTINE 14 MG/24 HOUR PATCH TD SCH (08:27)
[2021-04-21] MEDS: BACITRACIN 28 GM OINTMENT TP SCH ×2 (08:27→16:47)
[2021-04-21 08:56] VITALS: BP 139/96
[2021-04-21 16:19] VITALS: BP 106/75
[2021-04-21] MEDS: HALOPERIDOL 5 MG TABLET PO PRN (16:47)
[2021-04-21] MEDS: LORazepam 2 MG TABLET PO PRN ×2 (16:47→20:52)
[2021-04-21] MEDS: ZOLPIDEM TARTRATE 10 MG TABLET PO PRN (20:19)
[2021-04-22 06:02] VITALS: BP 106/64
[2021-04-22] MEDS: MULTIVITAMINS WITH MINERALS, THERAPEUTIC TABLET PO SCH (08:47)
[2021-04-22] MEDS: BENZTROPINE MESYLATE 1 MG TABLET PO SCH ×2 (08:47→16:34)
[2021-04-22] MEDS: NICOTINE 14 MG/24 HOUR PATCH TD SCH (08:47)
[2021-04-22] MEDS: OLANZapine 5 MG RAPDIS TABLET PO SCH ×2 (08:48→20:13)
[2021-04-22] MEDS: VALPROIC ACID 250 MG/5 ML SOLUTION UDCUP PO SCH ×2 (08:53→20:12)
[2021-04-22 08:55] VITALS: BP 116/79
[2021-04-22] MEDS ORDERED: ALBUTEROL SULFATE HFA 90 MCG/PUFF 8 GM INHALER IH PRN (09:30)
[2021-04-22] MEDS: BACITRACIN 28 GM OINTMENT TP SCH ×2 (10:45→16:34)
[2021-04-22] MEDS: LORazepam 2 MG TABLET PO PRN (13:27)
[2021-04-22 16:33] VITALS: BP 108/68
[2021-04-23 00:11] VITALS: BP 128/81
[2021-04-23] MEDS: MAG HYDROX/AL HYDROX/SIMETH ES 30 ML SUSPENSION UDCUP PO PRN (00:12)
[2021-04-23 08:57] VITALS: BP 131/80
[2021-04-23] MEDS: VALPROIC ACID 250 MG/5 ML SOLUTION UDCUP PO SCH ×2 (08:58→21:03)
[2021-04-23] MEDS: BENZTROPINE MESYLATE 1 MG TABLET PO SCH ×2 (08:59→17:23)
[2021-04-23] MEDS: OLANZapine 5 MG RAPDIS TABLET PO SCH ×2 (08:59→21:02)
[2021-04-23] MEDS: MULTIVITAMINS WITH MINERALS, THERAPEUTIC TABLET PO SCH (08:59)
[2021-04-23] MEDS: BACITRACIN 28 GM OINTMENT TP SCH ×2 (09:16→17:23)
[2021-04-23] MEDS: NICOTINE 14 MG/24 HOUR PATCH TD SCH (09:16)
[2021-04-23 16:23] VITALS: BP 129/86
[2021-04-23] MEDS: LORazepam 2 MG TABLET PO PRN (17:23)
[2021-04-23] MEDS: HALOPERIDOL 5 MG TABLET PO PRN (17:23)
[2021-04-23] MEDS: ZOLPIDEM TARTRATE 10 MG TABLET PO PRN (21:03)
[2021-04-23] MEDS: IBUPROFEN 400 MG TABLET PO PRN (21:03)
[2021-04-24 02:07] VITALS: BP 116/64
[2021-04-24] MEDS: IBUPROFEN 400 MG TABLET PO PRN (04:47)
[2021-04-24] MEDS: BENZTROPINE MESYLATE 1 MG TABLET PO SCH ×2 (08:27→16:54)
[2021-04-24] MEDS: MULTIVITAMINS WITH MINERALS, THERAPEUTIC TABLET PO SCH (08:27)
[2021-04-24] MEDS: OLANZapine 5 MG RAPDIS TABLET PO SCH ×2 (08:27→20:57)
[2021-04-24] MEDS: VALPROIC ACID 250 MG/5 ML SOLUTION UDCUP PO SCH ×2 (08:31→20:57)
[2021-04-24 08:39] VITALS: BP 109/71
[2021-04-24] MEDS: NICOTINE 14 MG/24 HOUR PATCH TD SCH (09:00)
[2021-04-24] MEDS: BACITRACIN 28 GM OINTMENT TP SCH ×2 (09:00→16:54)
[2021-04-24 16:13] VITALS: BP 117/82
[2021-04-24] MEDS: HALOPERIDOL 5 MG TABLET PO PRN (16:54)
[2021-04-24] MEDS: LORazepam 2 MG TABLET PO PRN (16:54)
[2021-04-24] MEDS ORDERED: ONDANSETRON HCL 4 MG/2 ML VIAL IM PRN (18:30)
[2021-04-25 03:13] VITALS: BP 111/69
[2021-04-25 07:38] LABS: COVID AG,FIA SOURCE NASAL SWAB
[2021-04-25] MEDS: OLANZapine 5 MG RAPDIS TABLET PO SCH ×2 (08:11→21:07)
[2021-04-25] MEDS: BENZTROPINE MESYLATE 1 MG TABLET PO SCH ×2 (08:11→16:06)
[2021-04-25] MEDS: MULTIVITAMINS WITH MINERALS, THERAPEUTIC TABLET PO SCH (08:11)
[2021-04-25] MEDS: VALPROIC ACID 250 MG/5 ML SOLUTION UDCUP PO SCH ×2 (08:13→21:08)
[2021-04-25] MEDS: NICOTINE 14 MG/24 HOUR PATCH TD SCH (09:00)
[2021-04-25] MEDS: BACITRACIN 28 GM OINTMENT TP SCH ×2 (09:00→16:08)
[2021-04-25 11:19] VITALS: BP 105/71
[2021-04-25] MEDS: MAG HYDROX/AL HYDROX/SIMETH ES 30 ML SUSPENSION UDCUP PO PRN (13:31)
[2021-04-25] MEDS: LORazepam 2 MG TABLET PO PRN (14:02)
[2021-04-25] MEDS: HALOPERIDOL 5 MG TABLET PO PRN (16:06)
[2021-04-25 16:23] VITALS: BP 121/78
[2021-04-25] MEDS: ZOLPIDEM TARTRATE 10 MG TABLET PO PRN (21:08)
[2021-04-26 00:52] VITALS: BP 110/69
[2021-04-26 08:39] VITALS: BP 115/77
[2021-04-26] MEDS: LORazepam 2 MG TABLET PO PRN (08:54)
[2021-04-26] MEDS: OLANZapine 5 MG RAPDIS TABLET PO SCH ×2 (08:55→20:04)
[2021-04-26] MEDS: MULTIVITAMINS WITH MINERALS, THERAPEUTIC TABLET PO SCH (08:55)
[2021-04-26] MEDS: BENZTROPINE MESYLATE 1 MG TABLET PO SCH ×2 (08:55→16:15)
[2021-04-26] MEDS: BACITRACIN 28 GM OINTMENT TP SCH ×2 (08:58→16:15)
[2021-04-26] MEDS: NICOTINE 14 MG/24 HOUR PATCH TD SCH (08:58)
[2021-04-26] MEDS: VALPROIC ACID 250 MG/5 ML SOLUTION UDCUP PO SCH ×2 (08:58→20:04)
[2021-04-26 16:25] VITALS: BP 113/76
[2021-04-27 04:48] VITALS: BP 118/72
[2021-04-27 08:38] VITALS: BP 126/80
[2021-04-27] MEDS: BACITRACIN 28 GM OINTMENT TP SCH ×2 (09:00→17:05)
[2021-04-27] MEDS: BENZTROPINE MESYLATE 1 MG TABLET PO SCH ×2 (09:28→17:04)
[2021-04-27] MEDS: OLANZapine 5 MG RAPDIS TABLET PO SCH ×2 (09:28→20:35)
[2021-04-27] MEDS: VALPROIC ACID 250 MG/5 ML SOLUTION UDCUP PO SCH ×2 (09:29→20:35)
[2021-04-27] MEDS: MULTIVITAMINS WITH MINERALS, THERAPEUTIC TABLET PO SCH (09:30)
[2021-04-27] MEDS: NICOTINE 14 MG/24 HOUR PATCH TD SCH (09:30)
[2021-04-27 16:29] VITALS: BP 108/74
[2021-04-27] MEDS: LORazepam 2 MG TABLET PO PRN (17:05)
[2021-04-27] MEDS: MAG HYDROX/AL HYDROX/SIMETH ES 30 ML SUSPENSION UDCUP PO PRN (18:23)
[2021-04-27] MEDS: ZOLPIDEM TARTRATE 10 MG TABLET PO PRN (20:35)
[2021-04-27] MEDS: IBUPROFEN 400 MG TABLET PO PRN (22:26)
[2021-04-28 02:32] VITALS: BP 116/68
[2021-04-28] MEDS: BENZTROPINE MESYLATE 1 MG TABLET PO SCH ×2 (08:25→16:08)
[2021-04-28] MEDS: OLANZapine 5 MG RAPDIS TABLET PO SCH ×2 (08:25→20:35)
[2021-04-28] MEDS: VALPROIC ACID 250 MG/5 ML SOLUTION UDCUP PO SCH ×2 (08:25→20:35)
[2021-04-28] MEDS: MULTIVITAMINS WITH MINERALS, THERAPEUTIC TABLET PO SCH (08:25)
[2021-04-28] MEDS: LORazepam 2 MG TABLET PO PRN ×2 (08:26→16:08)
[2021-04-28] MEDS: NICOTINE 14 MG/24 HOUR PATCH TD SCH (08:26)
[2021-04-28 08:59] VITALS: BP 100/66
[2021-04-28] MEDS: BACITRACIN 28 GM OINTMENT TP SCH ×2 (09:00→16:08)
[2021-04-28] MEDS: HALOPERIDOL 5 MG TABLET PO PRN (16:08)
[2021-04-28 16:34] VITALS: BP 100/63
[2021-04-28] MEDS: ZOLPIDEM TARTRATE 10 MG TABLET PO PRN (20:35)
[2021-04-29 06:20] VITALS: BP 105/63
[2021-04-29] MEDS: BENZTROPINE MESYLATE 1 MG TABLET PO SCH ×2 (08:03→17:03)
[2021-04-29] MEDS: MULTIVITAMINS WITH MINERALS, THERAPEUTIC TABLET PO SCH (08:03)
[2021-04-29] MEDS: OLANZapine 5 MG RAPDIS TABLET PO SCH ×2 (08:03→21:00)
[2021-04-29] MEDS: VALPROIC ACID 250 MG/5 ML SOLUTION UDCUP PO SCH ×3 (08:04→21:21)
[2021-04-29] MEDS: IBUPROFEN 400 MG TABLET PO PRN (08:08)
[2021-04-29 08:15] VITALS: BP 117/84
[2021-04-29] MEDS: NICOTINE 14 MG/24 HOUR PATCH TD SCH (09:00)
[2021-04-29] MEDS: BACITRACIN 28 GM OINTMENT TP SCH ×2 (09:00→17:03)
[2021-04-29] MEDS: LORazepam 2 MG TABLET PO PRN ×2 (12:28→17:03)
[2021-04-29 16:30] VITALS: BP 101/68
[2021-04-29] MEDS: HALOPERIDOL 5 MG TABLET PO PRN (17:03)
[2021-04-29] MEDS ORDERED: LORazepam 2 MG/ML VIAL ONE (19:24)
[2021-04-29] MEDS ORDERED: HALOPERIDOL LACTATE 5 MG/ML VIAL IM ONE (19:30)
[2021-04-29] MEDS ORDERED: LORazepam 2 MG/ML VIAL IM ONE (19:30)
[2021-04-29] MEDS ORDERED: DiphenhydrAMINE HCL 50 MG/ML VIAL IM ONE (19:30)
[2021-04-30 04:57] VITALS: BP 106/65
[2021-04-30] MEDS: IBUPROFEN 400 MG TABLET PO PRN (05:39)
[2021-04-30 08:29] VITALS: BP 106/75
[2021-04-30] MEDS: MULTIVITAMINS WITH MINERALS, THERAPEUTIC TABLET PO SCH (08:39)
[2021-04-30] MEDS: OLANZapine 5 MG RAPDIS TABLET PO SCH ×2 (08:39→20:46)
[2021-04-30] MEDS: BENZTROPINE MESYLATE 1 MG TABLET PO SCH ×2 (08:39→16:26)
[2021-04-30] MEDS: VALPROIC ACID 250 MG/5 ML SOLUTION UDCUP PO SCH ×2 (08:40→20:46)
[2021-04-30] MEDS: HALOPERIDOL 5 MG TABLET PO PRN ×2 (08:40→16:19)
[2021-04-30] MEDS: LORazepam 2 MG TABLET PO PRN ×2 (08:40→16:19)
[2021-04-30] MEDS: NICOTINE 14 MG/24 HOUR PATCH TD SCH (08:40)
[2021-04-30] MEDS: BACITRACIN 28 GM OINTMENT TP SCH ×2 (08:42→16:28)
[2021-04-30 16:23] VITALS: BP 101/64
[2021-05-01 04:58] VITALS: BP 101/71
[2021-05-01 08:24] VITALS: BP 113/78
[2021-05-01] MEDS: VALPROIC ACID 250 MG/5 ML SOLUTION UDCUP PO SCH ×2 (08:40→20:42)
[2021-05-01] MEDS: BENZTROPINE MESYLATE 1 MG TABLET PO SCH ×2 (08:40→16:51)
[2021-05-01] MEDS: MULTIVITAMINS WITH MINERALS, THERAPEUTIC TABLET PO SCH (08:41)
[2021-05-01] MEDS: OLANZapine 5 MG RAPDIS TABLET PO SCH ×2 (08:41→20:43)
[2021-05-01] MEDS: IBUPROFEN 400 MG TABLET PO PRN (08:41)
[2021-05-01] MEDS: BACITRACIN 28 GM OINTMENT TP SCH ×2 (08:42→16:51)
[2021-05-01] MEDS: NICOTINE 14 MG/24 HOUR PATCH TD SCH (08:42)
[2021-05-01 16:24] VITALS: BP 102/62
[2021-05-02 03:15] VITALS: BP 107/70
[2021-05-02] MEDS: MULTIVITAMINS WITH MINERALS, THERAPEUTIC TABLET PO SCH (08:13)
[2021-05-02] MEDS: BENZTROPINE MESYLATE 1 MG TABLET PO SCH ×2 (08:13→17:05)
[2021-05-02] MEDS: NICOTINE 14 MG/24 HOUR PATCH TD SCH (08:14)
[2021-05-02] MEDS: VALPROIC ACID 250 MG/5 ML SOLUTION UDCUP PO SCH ×2 (08:14→20:52)
[2021-05-02 08:19] LABS: COVID AG,FIA SOURCE NASAL SWAB
[2021-05-02] MEDS: OLANZapine 5 MG RAPDIS TABLET PO SCH (08:19)
[2021-05-02] MEDS: BACITRACIN 28 GM OINTMENT TP SCH (08:19)
[2021-05-02] MEDS: LORazepam 2 MG TABLET PO PRN ×2 (08:20→17:05)
[2021-05-02 08:30] VITALS: BP 114/78
[2021-05-02] MEDS: IBUPROFEN 400 MG TABLET PO PRN (13:42)
[2021-05-02 16:21] VITALS: BP 123/80
[2021-05-02] MEDS: HALOPERIDOL 5 MG TABLET PO PRN (17:05)
[2021-05-02] MEDS: RisperiDONE 2 MG TABLET PO SCH (20:52)
[2021-05-02] MEDS: OLANZapine 10 MG TABLET PO SCH (20:52)
[2021-05-03 00:32] VITALS: BP 110/67
[2021-05-03] MEDS: OLANZapine 10 MG TABLET PO SCH ×2 (08:35→20:24)
[2021-05-03] MEDS: MULTIVITAMINS WITH MINERALS, THERAPEUTIC TABLET PO SCH (08:35)
[2021-05-03] MEDS: BENZTROPINE MESYLATE 1 MG TABLET PO SCH ×2 (08:35→16:01)
[2021-05-03] MEDS: RisperiDONE 2 MG TABLET PO SCH ×2 (08:35→20:24)
[2021-05-03 08:36] VITALS: BP 103/66
[2021-05-03] MEDS: LORazepam 2 MG TABLET PO PRN ×2 (08:36→16:01)
[2021-05-03] MEDS: VALPROIC ACID 250 MG/5 ML SOLUTION UDCUP PO SCH ×2 (08:36→20:24)
[2021-05-03] MEDS: NICOTINE 14 MG/24 HOUR PATCH TD SCH (08:40)
[2021-05-03] MEDS: IBUPROFEN 400 MG TABLET PO PRN (09:38)
[2021-05-03] MEDS: HALOPERIDOL 5 MG TABLET PO PRN (16:01)
[2021-05-03 16:52] VITALS: BP 109/73
[2021-05-04 01:12] VITALS: BP 114/72
[2021-05-04] MEDS: OLANZapine 10 MG TABLET PO SCH ×2 (08:32→20:36)
[2021-05-04] MEDS: NICOTINE 14 MG/24 HOUR PATCH TD SCH (08:32)
[2021-05-04] MEDS: BENZTROPINE MESYLATE 1 MG TABLET PO SCH ×2 (08:33→16:19)
[2021-05-04] MEDS: MULTIVITAMINS WITH MINERALS, THERAPEUTIC TABLET PO SCH (08:33)
[2021-05-04] MEDS: RisperiDONE 2 MG TABLET PO SCH ×2 (08:33→20:35)
[2021-05-04 08:39] VITALS: BP 103/70
[2021-05-04] MEDS: HALOPERIDOL 5 MG TABLET PO PRN (08:42)
[2021-05-04] MEDS: LORazepam 2 MG TABLET PO PRN (08:42)
[2021-05-04] MEDS: VALPROIC ACID 250 MG/5 ML SOLUTION UDCUP PO SCH ×2 (10:59→20:36)
[2021-05-04 16:20] VITALS: BP 103/67
[2021-05-05 03:30] VITALS: BP 108/63
[2021-05-05] MEDS: RisperiDONE 2 MG TABLET PO SCH ×2 (08:28→20:16)
[2021-05-05] MEDS: BENZTROPINE MESYLATE 1 MG TABLET PO SCH ×2 (08:28→16:44)
[2021-05-05] MEDS: VALPROIC ACID 250 MG/5 ML SOLUTION UDCUP PO SCH ×2 (08:28→20:16)
[2021-05-05] MEDS: NICOTINE 14 MG/24 HOUR PATCH TD SCH (08:28)
[2021-05-05] MEDS: MULTIVITAMINS WITH MINERALS, THERAPEUTIC TABLET PO SCH (08:28)
[2021-05-05] MEDS: OLANZapine 10 MG TABLET PO SCH ×2 (08:28→20:16)
[2021-05-05 08:36] VITALS: BP 121/77
[2021-05-05 16:25] VITALS: BP 103/66
[2021-05-05] MEDS: MAG HYDROX/AL HYDROX/SIMETH ES 30 ML SUSPENSION UDCUP PO PRN (18:01)
[2021-05-05] MEDS: IBUPROFEN 400 MG TABLET PO PRN (19:02)
[2021-05-05] MEDS: ZOLPIDEM TARTRATE 10 MG TABLET PO PRN (22:23)
[2021-05-06 05:53] VITALS: BP 110/72
[2021-05-06] MEDS: NICOTINE 14 MG/24 HOUR PATCH TD SCH (08:12)
[2021-05-06] MEDS: OLANZapine 10 MG TABLET PO SCH ×2 (08:12→20:34)
[2021-05-06] MEDS: BENZTROPINE MESYLATE 1 MG TABLET PO SCH ×2 (08:13→16:31)
[2021-05-06] MEDS: HALOPERIDOL 5 MG TABLET PO PRN ×2 (08:13→16:32)
[2021-05-06] MEDS: RisperiDONE 2 MG TABLET PO SCH ×2 (08:13→20:34)
[2021-05-06] MEDS: VALPROIC ACID 250 MG/5 ML SOLUTION UDCUP PO SCH ×2 (08:13→20:34)
[2021-05-06] MEDS: MULTIVITAMINS WITH MINERALS, THERAPEUTIC TABLET PO SCH (08:13)
[2021-05-06 09:05] VITALS: BP 109/73
[2021-05-06] MEDS: LORazepam 2 MG TABLET PO PRN (12:09)
[2021-05-06 16:19] VITALS: BP 113/74
[2021-05-07 05:57] VITALS: BP 101/63
[2021-05-07 08:31] VITALS: BP 110/66
[2021-05-07] MEDS: VALPROIC ACID 250 MG/5 ML SOLUTION UDCUP PO SCH ×2 (08:57→20:04)
[2021-05-07] MEDS: MULTIVITAMINS WITH MINERALS, THERAPEUTIC TABLET PO SCH (08:57)
[2021-05-07] MEDS: RisperiDONE 2 MG TABLET PO SCH (08:57)
[2021-05-07] MEDS: OLANZapine 10 MG TABLET PO SCH (08:57)
[2021-05-07] MEDS: BENZTROPINE MESYLATE 1 MG TABLET PO SCH ×2 (08:57→16:20)
[2021-05-07] MEDS: NICOTINE 14 MG/24 HOUR PATCH TD SCH (09:00)
[2021-05-07 16:18] VITALS: BP 102/67
[2021-05-07] MEDS: HALOPERIDOL 5 MG TABLET PO PRN (16:20)
[2021-05-07] MEDS: LORazepam 2 MG TABLET PO PRN (16:20)
[2021-05-07] MEDS: RisperiDONE 3 MG TABLET PO SCH (20:04)
[2021-05-07] MEDS: OLANZapine 5 MG TABLET PO SCH (20:04)
[2021-05-07] MEDS: ZOLPIDEM TARTRATE 10 MG TABLET PO PRN (20:05)
[2021-05-08] MEDS: LORazepam 2 MG TABLET PO PRN (00:50)
[2021-05-08 00:54] VITALS: BP 111/77
[2021-05-08] MEDS: RisperiDONE 3 MG TABLET PO SCH ×2 (07:58→20:46)
[2021-05-08] MEDS: BENZTROPINE MESYLATE 1 MG TABLET PO SCH ×2 (07:59→16:52)
[2021-05-08] MEDS: VALPROIC ACID 250 MG/5 ML SOLUTION UDCUP PO SCH ×2 (07:59→20:46)
[2021-05-08] MEDS: OLANZapine 5 MG TABLET PO SCH ×2 (07:59→20:46)
[2021-05-08] MEDS: MULTIVITAMINS WITH MINERALS, THERAPEUTIC TABLET PO SCH (07:59)
[2021-05-08] MEDS: NICOTINE 14 MG/24 HOUR PATCH TD SCH (08:01)
[2021-05-08 08:17] VITALS: BP 120/82
[2021-05-08] MEDS: IBUPROFEN 400 MG TABLET PO PRN (13:32)
[2021-05-08 16:28] VITALS: BP 102/66
[2021-05-08] MEDS: ZOLPIDEM TARTRATE 10 MG TABLET PO PRN (20:47)
[2021-05-09 04:14] VITALS: BP 123/67
[2021-05-09 08:46] VITALS: BP 127/77
[2021-05-09] MEDS: MULTIVITAMINS WITH MINERALS, THERAPEUTIC TABLET PO SCH (08:57)
[2021-05-09] MEDS: VALPROIC ACID 250 MG/5 ML SOLUTION UDCUP PO SCH ×2 (08:57→20:27)
[2021-05-09] MEDS: BENZTROPINE MESYLATE 1 MG TABLET PO SCH ×2 (08:57→16:14)
[2021-05-09] MEDS: OLANZapine 5 MG TABLET PO SCH ×2 (08:57→20:27)
[2021-05-09] MEDS: RisperiDONE 3 MG TABLET PO SCH ×2 (08:57→20:27)
[2021-05-09] MEDS: NICOTINE 14 MG/24 HOUR PATCH TD SCH (09:00)
[2021-05-09] MEDS: LORazepam 2 MG TABLET PO PRN (13:32)
[2021-05-09 15:57] LABS: GLUCOMETER DEV NAME(LOC) POC.BV
[2021-05-09 16:22] VITALS: BP 100/65
[2021-05-09] MEDS: ZOLPIDEM TARTRATE 10 MG TABLET PO PRN (20:27)
[2021-05-10 05:38] VITALS: BP 105/62
[2021-05-10 08:34] VITALS: BP 106/69
[2021-05-10] MEDS: BENZTROPINE MESYLATE 1 MG TABLET PO SCH ×2 (08:38→16:29)
[2021-05-10] MEDS: OLANZapine 5 MG TABLET PO SCH ×2 (08:38→20:13)
[2021-05-10] MEDS: MULTIVITAMINS WITH MINERALS, THERAPEUTIC TABLET PO SCH (08:38)
[2021-05-10] MEDS: RisperiDONE 3 MG TABLET PO SCH ×2 (08:38→20:13)
[2021-05-10] MEDS: VALPROIC ACID 250 MG/5 ML SOLUTION UDCUP PO SCH ×2 (08:38→20:13)
[2021-05-10] MEDS: LORazepam 2 MG TABLET PO PRN ×2 (08:39→12:49)
[2021-05-10] MEDS: NICOTINE 14 MG/24 HOUR PATCH TD SCH (08:39)
[2021-05-10 16:20] VITALS: BP 105/61
[2021-05-11 05:13] VITALS: BP 110/68
[2021-05-11 08:44] VITALS: BP 106/71
[2021-05-11] MEDS: MULTIVITAMINS WITH MINERALS, THERAPEUTIC TABLET PO SCH (09:01)
[2021-05-11] MEDS: NICOTINE 14 MG/24 HOUR PATCH TD SCH (09:01)
[2021-05-11] MEDS: BENZTROPINE MESYLATE 1 MG TABLET PO SCH ×2 (09:01→16:45)
[2021-05-11] MEDS: VALPROIC ACID 250 MG/5 ML SOLUTION UDCUP PO SCH ×2 (09:01→20:55)
[2021-05-11] MEDS: RisperiDONE 3 MG TABLET PO SCH ×2 (09:01→20:54)
[2021-05-11] MEDS: OLANZapine 5 MG TABLET PO SCH ×2 (10:00→20:54)
[2021-05-11] MEDS: LORazepam 2 MG TABLET PO PRN ×2 (10:49→16:45)
[2021-05-11 16:22] VITALS: BP 108/67
[2021-05-11] MEDS: ZOLPIDEM TARTRATE 10 MG TABLET PO PRN (20:54)
[2021-05-12] MEDS ORDERED: PALIPERIDONE PALMITATE 234 MG/1.5 ML SYRINGE IM ONE ×2 (05:00→09:00)
[2021-05-12 05:05] VITALS: BP 108/62
[2021-05-12] MEDS: OLANZapine 5 MG TABLET PO SCH (08:36)
[2021-05-12] MEDS: RisperiDONE 3 MG TABLET PO SCH ×2 (08:36→21:02)
[2021-05-12] MEDS: NICOTINE 14 MG/24 HOUR PATCH TD SCH (08:36)
[2021-05-12] MEDS: BENZTROPINE MESYLATE 1 MG TABLET PO SCH ×2 (08:37→17:00)
[2021-05-12] MEDS: MULTIVITAMINS WITH MINERALS, THERAPEUTIC TABLET PO SCH (08:37)
[2021-05-12] MEDS: VALPROIC ACID 250 MG/5 ML SOLUTION UDCUP PO SCH ×2 (08:37→21:02)
[2021-05-12] MEDS: LORazepam 2 MG TABLET PO PRN (08:37)
[2021-05-12 08:43] VITALS: BP 105/75
[2021-05-12 16:14] VITALS: BP 92/62
[2021-05-12] MEDS: ZOLPIDEM TARTRATE 10 MG TABLET PO PRN (21:02)
[2021-05-13 01:10] VITALS: BP 101/62
[2021-05-13 08:31] VITALS: BP 100/66
[2021-05-13] MEDS: MULTIVITAMINS WITH MINERALS, THERAPEUTIC TABLET PO SCH (08:59)
[2021-05-13] MEDS: BENZTROPINE MESYLATE 1 MG TABLET PO SCH ×2 (08:59→16:59)
[2021-05-13] MEDS: VALPROIC ACID 250 MG/5 ML SOLUTION UDCUP PO SCH ×2 (08:59→20:40)
[2021-05-13] MEDS: NICOTINE 14 MG/24 HOUR PATCH TD SCH (08:59)
[2021-05-13] MEDS: RisperiDONE 3 MG TABLET PO SCH ×2 (08:59→20:40)
[2021-05-13] MEDS: LORazepam 2 MG TABLET PO PRN ×2 (12:59→18:32)
[2021-05-13 16:13] VITALS: BP 105/62
[2021-05-13] MEDS: ZOLPIDEM TARTRATE 10 MG TABLET PO PRN (20:41)
[2021-05-14 01:27] VITALS: BP 106/64
[2021-05-14 08:40] VITALS: BP 95/64
[2021-05-14] MEDS: NICOTINE 14 MG/24 HOUR PATCH TD SCH (09:00)
[2021-05-14] MEDS: RisperiDONE 3 MG TABLET PO SCH ×2 (09:28→20:24)
[2021-05-14] MEDS: VALPROIC ACID 250 MG/5 ML SOLUTION UDCUP PO SCH ×2 (09:28→20:24)
[2021-05-14] MEDS: BENZTROPINE MESYLATE 1 MG TABLET PO SCH ×2 (09:28→16:16)
[2021-05-14] MEDS: MULTIVITAMINS WITH MINERALS, THERAPEUTIC TABLET PO SCH (09:28)
[2021-05-14] MEDS: IBUPROFEN 400 MG TABLET PO PRN (12:46)
[2021-05-14 16:20] VITALS: BP 108/61
[2021-05-14] MEDS: ZOLPIDEM TARTRATE 10 MG TABLET PO PRN (20:24)
[2021-05-15 03:06] VITALS: BP 110/68
[2021-05-15 08:23] VITALS: BP 109/74
[2021-05-15] MEDS: VALPROIC ACID 250 MG/5 ML SOLUTION UDCUP PO SCH ×2 (08:36→20:02)
[2021-05-15] MEDS: RisperiDONE 3 MG TABLET PO SCH ×2 (08:37→20:02)
[2021-05-15] MEDS: BENZTROPINE MESYLATE 1 MG TABLET PO SCH ×2 (08:37→16:13)
[2021-05-15] MEDS: NICOTINE 14 MG/24 HOUR PATCH TD SCH (08:37)
[2021-05-15] MEDS: MULTIVITAMINS WITH MINERALS, THERAPEUTIC TABLET PO SCH (08:37)
[2021-05-15 16:17] VITALS: BP 110/74
[2021-05-16 00:24] VITALS: BP 108/70
[2021-05-16 08:20] VITALS: BP 112/79
[2021-05-16] MEDS ORDERED: PALIPERIDONE PALMITATE 156 MG/ML SYRINGE IM ONE (09:00)
[2021-05-16] MEDS: VALPROIC ACID 250 MG/5 ML SOLUTION UDCUP PO SCH ×2 (09:22→20:39)
[2021-05-16] MEDS: RisperiDONE 3 MG TABLET PO SCH ×2 (09:23→20:39)
[2021-05-16] MEDS: BENZTROPINE MESYLATE 1 MG TABLET PO SCH ×2 (09:23→16:59)
[2021-05-16] MEDS: MULTIVITAMINS WITH MINERALS, THERAPEUTIC TABLET PO SCH (09:23)
[2021-05-16] MEDS: NICOTINE 14 MG/24 HOUR PATCH TD SCH (09:26)
[2021-05-16 16:12] VITALS: BP 113/71
[2021-05-16] MEDS: LORazepam 2 MG TABLET PO PRN (16:59)
[2021-05-16] MEDS: ZOLPIDEM TARTRATE 10 MG TABLET PO PRN (20:40)
[2021-05-17 00:23] VITALS: BP 114/70
[2021-05-17] MEDS: BENZTROPINE MESYLATE 1 MG TABLET PO SCH ×2 (08:05→16:48)
[2021-05-17] MEDS: RisperiDONE 3 MG TABLET PO SCH ×2 (08:05→20:24)
[2021-05-17] MEDS: NICOTINE 14 MG/24 HOUR PATCH TD SCH (08:05)
[2021-05-17] MEDS: VALPROIC ACID 250 MG/5 ML SOLUTION UDCUP PO SCH ×2 (08:06→20:24)
[2021-05-17] MEDS: MULTIVITAMINS WITH MINERALS, THERAPEUTIC TABLET PO SCH (08:06)
[2021-05-17 11:14] VITALS: BP 121/68
[2021-05-17 16:19] VITALS: BP 133/65
[2021-05-17] MEDS: LORazepam 2 MG TABLET PO PRN (16:49)
[2021-05-17] MEDS: ZOLPIDEM TARTRATE 10 MG TABLET PO PRN (20:25)
[2021-05-18 00:37] VITALS: BP 106/62
[2021-05-18] MEDS: IBUPROFEN 400 MG TABLET PO PRN (06:46)
[2021-05-18 08:24] VITALS: BP 114/74
[2021-05-18] MEDS: BENZTROPINE MESYLATE 1 MG TABLET PO SCH ×2 (08:39→16:28)
[2021-05-18] MEDS: MULTIVITAMINS WITH MINERALS, THERAPEUTIC TABLET PO SCH (08:39)
[2021-05-18] MEDS: VALPROIC ACID 250 MG/5 ML SOLUTION UDCUP PO SCH ×2 (08:39→20:57)
[2021-05-18] MEDS: NICOTINE 14 MG/24 HOUR PATCH TD SCH (08:40)
[2021-05-18] MEDS: RisperiDONE 3 MG TABLET PO SCH ×2 (09:58→20:57)
[2021-05-18 16:25] VITALS: BP 110/73
[2021-05-18] MEDS: LORazepam 2 MG TABLET PO PRN (16:28)
[2021-05-18] MEDS: ZOLPIDEM TARTRATE 10 MG TABLET PO PRN (20:57)
[2021-05-19 00:38] VITALS: BP 118/76
[2021-05-19] MEDS: NICOTINE 14 MG/24 HOUR PATCH TD SCH (08:03)
[2021-05-19] MEDS: VALPROIC ACID 250 MG/5 ML SOLUTION UDCUP PO SCH ×2 (08:03→20:51)
[2021-05-19] MEDS: MULTIVITAMINS WITH MINERALS, THERAPEUTIC TABLET PO SCH (08:04)
[2021-05-19] MEDS: BENZTROPINE MESYLATE 1 MG TABLET PO SCH ×2 (08:04→17:05)
[2021-05-19] MEDS: RisperiDONE 3 MG TABLET PO SCH ×2 (08:04→20:51)
[2021-05-19 08:26] VITALS: BP 107/73
[2021-05-19] MEDS: IBUPROFEN 400 MG TABLET PO PRN (11:51)
[2021-05-19 16:37] VITALS: BP 115/64
[2021-05-19] MEDS: HALOPERIDOL 5 MG TABLET PO PRN ×2 (17:06→23:01)
[2021-05-19] MEDS: LORazepam 2 MG TABLET PO PRN (17:06)
[2021-05-19] MEDS: ZOLPIDEM TARTRATE 10 MG TABLET PO PRN (20:51)
[2021-05-20 06:10] VITALS: BP 114/70
[2021-05-20 08:07] LABS: COVID AG,FIA SOURCE NASAL SWAB
[2021-05-20] MEDS: VALPROIC ACID 250 MG/5 ML SOLUTION UDCUP PO SCH ×2 (08:35→20:07)
[2021-05-20] MEDS: NICOTINE 14 MG/24 HOUR PATCH TD SCH (08:35)
[2021-05-20] MEDS: BENZTROPINE MESYLATE 1 MG TABLET PO SCH ×2 (08:36→16:08)
[2021-05-20] MEDS: MULTIVITAMINS WITH MINERALS, THERAPEUTIC TABLET PO SCH (08:36)
[2021-05-20] MEDS: RisperiDONE 3 MG TABLET PO SCH ×2 (08:36→20:07)
[2021-05-20 08:37] VITALS: BP 100/65
[2021-05-20 16:22] VITALS: BP 110/60
[2021-05-21 04:23] VITALS: BP 123/78
[2021-05-21] MEDS: VALPROIC ACID 250 MG/5 ML SOLUTION UDCUP PO SCH ×2 (08:13→20:44)
[2021-05-21] MEDS: NICOTINE 14 MG/24 HOUR PATCH TD SCH (08:13)
[2021-05-21] MEDS: LORazepam 2 MG TABLET PO PRN ×2 (08:14→16:33)
[2021-05-21] MEDS: RisperiDONE 3 MG TABLET PO SCH ×2 (08:14→20:44)
[2021-05-21] MEDS: MULTIVITAMINS WITH MINERALS, THERAPEUTIC TABLET PO SCH (08:14)
[2021-05-21] MEDS: BENZTROPINE MESYLATE 1 MG TABLET PO SCH ×2 (08:14→16:32)
[2021-05-21 08:27] VITALS: BP 106/67
[2021-05-21] MEDS: HALOPERIDOL 5 MG TABLET PO PRN (16:33)
[2021-05-21 16:51] VITALS: BP 100/61
[2021-05-21] MEDS: ZOLPIDEM TARTRATE 10 MG TABLET PO PRN (20:44)
[2021-05-22 03:50] VITALS: BP 103/72
[2021-05-22] MEDS: MULTIVITAMINS WITH MINERALS, THERAPEUTIC TABLET PO SCH (08:22)
[2021-05-22] MEDS: VALPROIC ACID 250 MG/5 ML SOLUTION UDCUP PO SCH ×2 (08:22→20:52)
[2021-05-22] MEDS: BENZTROPINE MESYLATE 1 MG TABLET PO SCH ×2 (08:22→16:48)
[2021-05-22] MEDS: NICOTINE 14 MG/24 HOUR PATCH TD SCH (08:22)
[2021-05-22] MEDS: RisperiDONE 3 MG TABLET PO SCH ×2 (08:22→20:52)
[2021-05-22] MEDS: LORazepam 2 MG TABLET PO PRN (08:25)
[2021-05-22 08:27] VITALS: BP 128/76
[2021-05-22 16:54] VITALS: BP 107/63
[2021-05-22] MEDS: ZOLPIDEM TARTRATE 10 MG TABLET PO PRN (20:52)
[2021-05-23 04:16] VITALS: BP 111/66
[2021-05-23 07:50] LABS: BASOPHILS % (AUTO) 0.7 % (0.0-2.0); EOSINOPHILS % (AUTO) 1.2 % (1.0-6.0); HEMATOCRIT 49.1 % (41-53); HEMOGLOBIN 16.4 g/dL (13.5-17.5); LYMPHOCYTES # (AUTO) 2.2 K/uL (1.0-4.8); LYMPHOCYTES % (AUTO) 45.5 % (22.0-44.0); MEAN CORPUSCULAR HEMOGLOBIN 32.4 pg (26.0-34.0); MEAN CORPUSCULAR HGB CONC 33.5 G/dL (31.0-37.0); MEAN CORPUSCULAR VOLUME 97 fL (80-100); MONOCYTES # (AUTO) 0.5 K/uL (0.1-1.0); NEUTROPHILS % (AUTO) 42.6 % (40.0-70.0); PLATELET COUNT (AUTO) 104 K/uL (150-450); RED BLOOD CELL COUNT(AUTO) 5.07 MIL/uL (4.50-5.90); RED CELL DISTRIBUTION WIDTH 15.3 % (11.5-14.5)
[2021-05-23 07:58] LABS: ANION GAP 3 mmol/L (8-16); CALCIUM, TOTAL 8.7 mg/dL (8.8-10.5); CARBON DIOXIDE 30 mmol/L (22-29); CHLORIDE 107 mmol/L (98-107); GLOMERULAR FILTR. RATE CALC > 60 mL/min (>60); GLUCOSE,RANDOM 85 mg/dL (70-110); POTASSIUM 4.5 mmol/L (3.5-5.1); SODIUM SERUM 140 mmol/L (136-145); UREA NITROGEN, BLOOD 23 mg/dL (7-18)
[2021-05-23] MEDS: VALPROIC ACID 250 MG/5 ML SOLUTION UDCUP PO SCH ×2 (08:06→20:38)
[2021-05-23] MEDS: RisperiDONE 3 MG TABLET PO SCH ×2 (08:06→20:37)
[2021-05-23] MEDS: BENZTROPINE MESYLATE 1 MG TABLET PO SCH ×2 (08:06→16:24)
[2021-05-23] MEDS: MULTIVITAMINS WITH MINERALS, THERAPEUTIC TABLET PO SCH (08:07)
[2021-05-23] MEDS: LORazepam 2 MG TABLET PO PRN (08:10)
[2021-05-23 08:44] VITALS: BP 103/70
[2021-05-23] MEDS: NICOTINE 14 MG/24 HOUR PATCH TD SCH (09:12)
[2021-05-23 16:19] VITALS: BP 108/66
[2021-05-23] MEDS: ZOLPIDEM TARTRATE 10 MG TABLET PO PRN (22:49)
[2021-05-24 01:03] VITALS: BP 110/62
[2021-05-24 08:41] VITALS: BP 108/71
[2021-05-24] MEDS: MULTIVITAMINS WITH MINERALS, THERAPEUTIC TABLET PO SCH (09:00)
[2021-05-24] MEDS: BENZTROPINE MESYLATE 1 MG TABLET PO SCH ×2 (09:00→16:13)
[2021-05-24] MEDS: NICOTINE 14 MG/24 HOUR PATCH TD SCH (09:00)
[2021-05-24] MEDS: RisperiDONE 3 MG TABLET PO SCH ×2 (09:00→21:06)
[2021-05-24] MEDS: VALPROIC ACID 250 MG/5 ML SOLUTION UDCUP PO SCH ×2 (09:00→21:07)
[2021-05-24] MEDS: LORazepam 2 MG TABLET PO PRN (16:13)
[2021-05-24 16:17] VITALS: BP 100/61
[2021-05-24] MEDS: ZOLPIDEM TARTRATE 10 MG TABLET PO PRN (21:06)
[2021-05-25 06:08] VITALS: BP 108/66
[2021-05-25] MEDS: RisperiDONE 3 MG TABLET PO SCH ×2 (08:30→21:01)
[2021-05-25] MEDS: MULTIVITAMINS WITH MINERALS, THERAPEUTIC TABLET PO SCH (08:30)
[2021-05-25] MEDS: BENZTROPINE MESYLATE 1 MG TABLET PO SCH ×2 (08:30→16:17)
[2021-05-25] MEDS: VALPROIC ACID 250 MG/5 ML SOLUTION UDCUP PO SCH ×2 (08:30→21:00)
[2021-05-25] MEDS: NICOTINE 14 MG/24 HOUR PATCH TD SCH (08:30)
[2021-05-25 09:40] VITALS: BP 102/69
[2021-05-25] MEDS: HALOPERIDOL 5 MG TABLET PO PRN (16:17)
[2021-05-25 16:40] VITALS: BP 100/63
[2021-05-25] MEDS: ZOLPIDEM TARTRATE 10 MG TABLET PO PRN (21:01)
[2021-05-26 05:25] VITALS: BP 109/69
[2021-05-26 08:35] VITALS: BP 105/70
[2021-05-26] MEDS: MULTIVITAMINS WITH MINERALS, THERAPEUTIC TABLET PO SCH (08:50)
[2021-05-26] MEDS: BENZTROPINE MESYLATE 1 MG TABLET PO SCH ×2 (08:50→16:34)
[2021-05-26] MEDS: NICOTINE 14 MG/24 HOUR PATCH TD SCH (08:50)
[2021-05-26] MEDS: VALPROIC ACID 250 MG/5 ML SOLUTION UDCUP PO SCH ×2 (08:50→20:04)
[2021-05-26] MEDS: RisperiDONE 3 MG TABLET PO SCH ×2 (08:50→20:04)
[2021-05-26 16:33] VITALS: BP 102/67
[2021-05-27 05:44] VITALS: BP 107/67
[2021-05-27] MEDS: VALPROIC ACID 250 MG/5 ML SOLUTION UDCUP PO SCH ×2 (08:35→20:30)
[2021-05-27] MEDS: RisperiDONE 3 MG TABLET PO SCH ×2 (08:36→20:30)
[2021-05-27] MEDS: MULTIVITAMINS WITH MINERALS, THERAPEUTIC TABLET PO SCH (08:36)
[2021-05-27] MEDS: BENZTROPINE MESYLATE 1 MG TABLET PO SCH ×2 (08:36→17:03)
[2021-05-27 08:50] VITALS: BP 100/61
[2021-05-27] MEDS: NICOTINE 14 MG/24 HOUR PATCH TD SCH (08:52)
[2021-05-27 16:05] VITALS: BP 97/65
[2021-05-28 05:52] VITALS: BP 99/66
[2021-05-28] MEDS: BENZTROPINE MESYLATE 1 MG TABLET PO SCH ×2 (08:44→16:39)
[2021-05-28] MEDS: MULTIVITAMINS WITH MINERALS, THERAPEUTIC TABLET PO SCH (08:44)
[2021-05-28] MEDS: RisperiDONE 3 MG TABLET PO SCH ×2 (08:44→20:13)
[2021-05-28] MEDS: VALPROIC ACID 250 MG/5 ML SOLUTION UDCUP PO SCH ×2 (08:44→20:12)
[2021-05-28] MEDS: NICOTINE 14 MG/24 HOUR PATCH TD SCH (09:00)
[2021-05-28 09:30] VITALS: BP 102/72
[2021-05-28 16:28] VITALS: BP 98/62
[2021-05-28] MEDS: ZOLPIDEM TARTRATE 10 MG TABLET PO PRN (20:13)
[2021-05-29] MEDS: VALPROIC ACID 250 MG/5 ML SOLUTION UDCUP PO SCH ×2 (08:18→20:10)
[2021-05-29] MEDS: RisperiDONE 3 MG TABLET PO SCH ×2 (08:19→20:10)
[2021-05-29] MEDS: MULTIVITAMINS WITH MINERALS, THERAPEUTIC TABLET PO SCH (08:19)
[2021-05-29] MEDS: BENZTROPINE MESYLATE 1 MG TABLET PO SCH ×2 (08:19→16:41)
[2021-05-29 08:20] VITALS: BP 99/61
[2021-05-29] MEDS: NICOTINE 14 MG/24 HOUR PATCH TD SCH (08:31)
[2021-05-29 16:29] VITALS: BP 106/65
[2021-05-30 04:54] VITALS: BP 105/68
[2021-05-30] MEDS: RisperiDONE 3 MG TABLET PO SCH ×2 (08:27→20:52)
[2021-05-30] MEDS: BENZTROPINE MESYLATE 1 MG TABLET PO SCH ×2 (08:28→16:54)
[2021-05-30] MEDS: MULTIVITAMINS WITH MINERALS, THERAPEUTIC TABLET PO SCH (08:28)
[2021-05-30] MEDS: VALPROIC ACID 250 MG/5 ML SOLUTION UDCUP PO SCH ×2 (08:28→20:52)
[2021-05-30] MEDS: NICOTINE 14 MG/24 HOUR PATCH TD SCH (08:34)
[2021-05-30 09:10] VITALS: BP 102/71
[2021-05-30 16:18] VITALS: BP 100/68
[2021-05-30] MEDS: ZOLPIDEM TARTRATE 10 MG TABLET PO PRN (20:52)
[2021-05-31] MEDS: VALPROIC ACID 250 MG/5 ML SOLUTION UDCUP PO SCH ×2 (08:40→20:37)
[2021-05-31] MEDS: MULTIVITAMINS WITH MINERALS, THERAPEUTIC TABLET PO SCH (08:40)
[2021-05-31] MEDS: RisperiDONE 3 MG TABLET PO SCH ×2 (08:40→20:36)
[2021-05-31] MEDS: BENZTROPINE MESYLATE 1 MG TABLET PO SCH ×2 (08:40→16:05)
[2021-05-31] MEDS: NICOTINE 14 MG/24 HOUR PATCH TD SCH (08:40)
[2021-05-31 10:00] VITALS: BP 113/65
[2021-05-31 16:15] VITALS: BP 104/72
[2021-06-01 00:38] VITALS: BP 110/68
[2021-06-01] MEDS: RisperiDONE 3 MG TABLET PO SCH ×2 (08:32→20:40)
[2021-06-01] MEDS: BENZTROPINE MESYLATE 1 MG TABLET PO SCH ×2 (08:32→16:48)
[2021-06-01] MEDS: MULTIVITAMINS WITH MINERALS, THERAPEUTIC TABLET PO SCH (08:32)
[2021-06-01] MEDS: VALPROIC ACID 250 MG/5 ML SOLUTION UDCUP PO SCH ×2 (08:32→20:40)
[2021-06-01] MEDS: NICOTINE 14 MG/24 HOUR PATCH TD SCH (08:32)
[2021-06-01 09:31] VITALS: BP 110/63
[2021-06-01 16:52] VITALS: BP 100/60
[2021-06-01] MEDS: ZOLPIDEM TARTRATE 10 MG TABLET PO PRN (20:41)
[2021-06-02 06:35] VITALS: BP 110/70
[2021-06-02 08:23] VITALS: BP 100/63
[2021-06-02] MEDS: MULTIVITAMINS WITH MINERALS, THERAPEUTIC TABLET PO SCH (08:45)
[2021-06-02] MEDS: VALPROIC ACID 250 MG/5 ML SOLUTION UDCUP PO SCH ×2 (08:46→20:50)
[2021-06-02] MEDS: BENZTROPINE MESYLATE 1 MG TABLET PO SCH ×2 (08:46→16:58)
[2021-06-02] MEDS: RisperiDONE 3 MG TABLET PO SCH ×2 (08:46→20:50)
[2021-06-02] MEDS: NICOTINE 14 MG/24 HOUR PATCH TD SCH (08:49)
[2021-06-02 16:23] VITALS: BP 109/79
[2021-06-02] MEDS: ZOLPIDEM TARTRATE 10 MG TABLET PO PRN (20:50)
[2021-06-03 07:00] VITALS: BP 118/75
[2021-06-03 08:18] VITALS: BP 102/63
[2021-06-03] MEDS: VALPROIC ACID 250 MG/5 ML SOLUTION UDCUP PO SCH ×2 (08:27→20:23)
[2021-06-03] MEDS: MULTIVITAMINS WITH MINERALS, THERAPEUTIC TABLET PO SCH (08:28)
[2021-06-03] MEDS: RisperiDONE 3 MG TABLET PO SCH ×2 (08:28→20:23)
[2021-06-03] MEDS: BENZTROPINE MESYLATE 1 MG TABLET PO SCH ×2 (08:28→16:34)
[2021-06-03] MEDS: NICOTINE 14 MG/24 HOUR PATCH TD SCH (08:28)
[2021-06-03 16:32] VITALS: BP 103/68
[2021-06-04 06:23] VITALS: BP 114/72
[2021-06-04 06:41] VITALS: BP 112/62
[2021-06-04 08:39] VITALS: BP 109/64
[2021-06-04] MEDS: VALPROIC ACID 250 MG/5 ML SOLUTION UDCUP PO SCH ×2 (09:35→20:49)
[2021-06-04] MEDS: NICOTINE 14 MG/24 HOUR PATCH TD SCH (09:36)
[2021-06-04] MEDS: BENZTROPINE MESYLATE 1 MG TABLET PO SCH ×2 (09:36→16:52)
[2021-06-04] MEDS: MULTIVITAMINS WITH MINERALS, THERAPEUTIC TABLET PO SCH (09:36)
[2021-06-04] MEDS: RisperiDONE 3 MG TABLET PO SCH ×2 (09:36→20:49)
[2021-06-04 16:17] VITALS: BP 108/61
[2021-06-05] MEDS: RisperiDONE 3 MG TABLET PO SCH ×2 (08:10→21:05)
[2021-06-05] MEDS: BENZTROPINE MESYLATE 1 MG TABLET PO SCH ×2 (08:11→16:50)
[2021-06-05] MEDS: VALPROIC ACID 250 MG/5 ML SOLUTION UDCUP PO SCH ×2 (08:11→21:05)
[2021-06-05] MEDS: MULTIVITAMINS WITH MINERALS, THERAPEUTIC TABLET PO SCH (08:11)
[2021-06-05] MEDS: NICOTINE 14 MG/24 HOUR PATCH TD SCH (08:12)
[2021-06-05 08:16] VITALS: BP 109/68
[2021-06-05 12:29] LABS: GLUCOMETER DEV NAME(LOC) POC.BV
[2021-06-05 16:19] VITALS: BP 106/60
[2021-06-06 07:15] VITALS: BP 90/60
[2021-06-06 08:55] VITALS: BP 111/66
[2021-06-06] MEDS: MULTIVITAMINS WITH MINERALS, THERAPEUTIC TABLET PO SCH (09:35)
[2021-06-06] MEDS: VALPROIC ACID 250 MG/5 ML SOLUTION UDCUP PO SCH ×2 (09:35→20:53)
[2021-06-06] MEDS: RisperiDONE 3 MG TABLET PO SCH ×2 (09:35→20:53)
[2021-06-06] MEDS: BENZTROPINE MESYLATE 1 MG TABLET PO SCH ×2 (09:35→17:00)
[2021-06-06] MEDS ORDERED: NICOTINE 14 MG/24 HOUR PATCH TD PRN (09:45)
[2021-06-06 16:22] VITALS: BP 109/62
[2021-06-07 06:08] VITALS: BP 84/47
[2021-06-07 08:06] VITALS: BP 103/63
[2021-06-07] MEDS: BENZTROPINE MESYLATE 1 MG TABLET PO SCH ×2 (08:15→16:35)
[2021-06-07] MEDS: MULTIVITAMINS WITH MINERALS, THERAPEUTIC TABLET PO SCH (08:15)
[2021-06-07] MEDS: VALPROIC ACID 250 MG/5 ML SOLUTION UDCUP PO SCH ×2 (08:15→20:28)
[2021-06-07 16:18] VITALS: BP 98/59
[2021-06-08 01:13] VITALS: BP 104/61
[2021-06-08 08:08] VITALS: BP 102/68
[2021-06-08] MEDS: BENZTROPINE MESYLATE 1 MG TABLET PO SCH ×2 (08:18→16:26)
[2021-06-08] MEDS: MULTIVITAMINS WITH MINERALS, THERAPEUTIC TABLET PO SCH (08:18)
[2021-06-08] MEDS: VALPROIC ACID 250 MG/5 ML SOLUTION UDCUP PO SCH ×2 (08:19→20:51)
[2021-06-08] MEDS: OMEPRAZOLE 20 MG CAPSULE PO SCH (12:32)
[2021-06-08 16:16] VITALS: BP 113/76
[2021-06-08] MEDS: ZOLPIDEM TARTRATE 10 MG TABLET PO PRN (20:50)
[2021-06-09 04:26] VITALS: BP 124/68
[2021-06-09] MEDS: OMEPRAZOLE 20 MG CAPSULE PO SCH (08:07)
[2021-06-09] MEDS: MULTIVITAMINS WITH MINERALS, THERAPEUTIC TABLET PO SCH (08:07)
[2021-06-09] MEDS: BENZTROPINE MESYLATE 1 MG TABLET PO SCH ×2 (08:07→16:57)
[2021-06-09] MEDS: VALPROIC ACID 250 MG/5 ML SOLUTION UDCUP PO SCH ×2 (08:10→20:18)
[2021-06-09] MEDS: PALIPERIDONE PALMITATE 234 MG/1.5 ML SYRINGE IM SCH (08:56)
[2021-06-09 09:05] VITALS: BP 100/61
[2021-06-09 16:14] VITALS: BP 108/67
[2021-06-10 01:24] VITALS: BP 90/61
[2021-06-10 08:23] VITALS: BP 100/60
[2021-06-10] MEDS: VALPROIC ACID 250 MG/5 ML SOLUTION UDCUP PO SCH ×2 (08:30→22:23)
[2021-06-10] MEDS: MULTIVITAMINS WITH MINERALS, THERAPEUTIC TABLET PO SCH (08:30)
[2021-06-10] MEDS: OMEPRAZOLE 20 MG CAPSULE PO SCH (08:30)
[2021-06-10] MEDS: BENZTROPINE MESYLATE 1 MG TABLET PO SCH ×2 (08:30→16:23)
[2021-06-10 16:16] VITALS: BP 103/70
[2021-06-11 04:18] VITALS: BP 94/64
[2021-06-11 08:30] VITALS: BP 105/61
[2021-06-11] MEDS: OMEPRAZOLE 20 MG CAPSULE PO SCH (09:01)
[2021-06-11] MEDS: BENZTROPINE MESYLATE 1 MG TABLET PO SCH ×2 (09:01→16:41)
[2021-06-11] MEDS: VALPROIC ACID 250 MG/5 ML SOLUTION UDCUP PO SCH ×2 (09:01→21:32)
[2021-06-11] MEDS: MULTIVITAMINS WITH MINERALS, THERAPEUTIC TABLET PO SCH (09:01)
[2021-06-11 16:22] VITALS: BP 104/73
[2021-06-11] MEDS: ZOLPIDEM TARTRATE 10 MG TABLET PO PRN (20:48)
[2021-06-12 05:59] VITALS: BP 110/68
[2021-06-12 08:20] VITALS: BP 108/60
[2021-06-12] MEDS: OMEPRAZOLE 20 MG CAPSULE PO SCH (08:27)
[2021-06-12] MEDS: MULTIVITAMINS WITH MINERALS, THERAPEUTIC TABLET PO SCH (08:27)
[2021-06-12] MEDS: BENZTROPINE MESYLATE 1 MG TABLET PO SCH ×2 (08:27→16:49)
[2021-06-12] MEDS: VALPROIC ACID 250 MG/5 ML SOLUTION UDCUP PO SCH ×2 (08:27→21:01)
[2021-06-12 16:19] VITALS: BP 106/63
[2021-06-13 06:13] VITALS: BP 114/71
[2021-06-13 08:13] VITALS: BP 103/53
[2021-06-13] MEDS: VALPROIC ACID 250 MG/5 ML SOLUTION UDCUP PO SCH ×2 (08:40→20:46)
[2021-06-13] MEDS: OMEPRAZOLE 20 MG CAPSULE PO SCH (08:40)
[2021-06-13] MEDS: MULTIVITAMINS WITH MINERALS, THERAPEUTIC TABLET PO SCH (08:40)
[2021-06-13] MEDS: BENZTROPINE MESYLATE 1 MG TABLET PO SCH ×2 (08:40→17:17)
[2021-06-13 16:16] VITALS: BP 102/62
[2021-06-14 02:25] VITALS: BP 100/59
[2021-06-14] MEDS: BENZTROPINE MESYLATE 1 MG TABLET PO SCH ×2 (08:24→17:00)
[2021-06-14] MEDS: OMEPRAZOLE 20 MG CAPSULE PO SCH (08:24)
[2021-06-14] MEDS: MULTIVITAMINS WITH MINERALS, THERAPEUTIC TABLET PO SCH (08:24)
[2021-06-14] MEDS: VALPROIC ACID 250 MG/5 ML SOLUTION UDCUP PO SCH ×2 (08:24→20:43)
[2021-06-14 14:28] VITALS: BP 102/63
[2021-06-14 16:34] VITALS: BP 100/62
[2021-06-14] MEDS: HALOPERIDOL 5 MG TABLET PO PRN (17:00)
[2021-06-14] MEDS: ZOLPIDEM TARTRATE 10 MG TABLET PO PRN (20:44)
[2021-06-15 00:44] VITALS: BP 107/65
[2021-06-15 08:26] VITALS: BP 100/60
[2021-06-15] MEDS: BENZTROPINE MESYLATE 1 MG TABLET PO SCH ×2 (08:52→18:04)
[2021-06-15] MEDS: VALPROIC ACID 250 MG/5 ML SOLUTION UDCUP PO SCH ×2 (08:52→22:27)
[2021-06-15] MEDS: OMEPRAZOLE 20 MG CAPSULE PO SCH (08:52)
[2021-06-15] MEDS: MULTIVITAMINS WITH MINERALS, THERAPEUTIC TABLET PO SCH (08:52)
[2021-06-15 16:23] VITALS: BP 122/65
[2021-06-16 06:15] VITALS: BP 105/65
[2021-06-16] MEDS: MULTIVITAMINS WITH MINERALS, THERAPEUTIC TABLET PO SCH (08:33)
[2021-06-16] MEDS: VALPROIC ACID 250 MG/5 ML SOLUTION UDCUP PO SCH ×2 (08:33→20:08)
[2021-06-16] MEDS: OMEPRAZOLE 20 MG CAPSULE PO SCH (08:33)
[2021-06-16] MEDS: BENZTROPINE MESYLATE 1 MG TABLET PO SCH ×2 (08:33→16:04)
[2021-06-16 09:50] VITALS: BP 93/66
[2021-06-16] MEDS: LORazepam 2 MG TABLET PO PRN (16:13)
[2021-06-16 16:19] VITALS: BP 96/67
[2021-06-16] MEDS: ZOLPIDEM TARTRATE 10 MG TABLET PO PRN (20:08)
[2021-06-17 06:53] VITALS: BP 115/63
[2021-06-17 08:42] VITALS: BP 100/69
[2021-06-17] MEDS: VALPROIC ACID 250 MG/5 ML SOLUTION UDCUP PO SCH ×2 (08:50→21:09)
[2021-06-17] MEDS: BENZTROPINE MESYLATE 1 MG TABLET PO SCH ×2 (08:50→16:58)
[2021-06-17] MEDS: OMEPRAZOLE 20 MG CAPSULE PO SCH (08:50)
[2021-06-17] MEDS: MULTIVITAMINS WITH MINERALS, THERAPEUTIC TABLET PO SCH (08:50)
[2021-06-17 16:28] VITALS: BP 96/69
[2021-06-17] MEDS: ZOLPIDEM TARTRATE 10 MG TABLET PO PRN (21:05)
[2021-06-18] MEDS: MULTIVITAMINS WITH MINERALS, THERAPEUTIC TABLET PO SCH (08:20)
[2021-06-18] MEDS: BENZTROPINE MESYLATE 1 MG TABLET PO SCH ×2 (08:20→17:12)
[2021-06-18] MEDS: OMEPRAZOLE 20 MG CAPSULE PO SCH (08:20)
[2021-06-18] MEDS: VALPROIC ACID 250 MG/5 ML SOLUTION UDCUP PO SCH ×2 (08:21→21:02)
[2021-06-18 09:53] VITALS: BP 114/71
[2021-06-18 16:27] VITALS: BP 108/62
[2021-06-19 00:46] VITALS: BP 108/70
[2021-06-19] MEDS: VALPROIC ACID 250 MG/5 ML SOLUTION UDCUP PO SCH ×2 (08:15→20:24)
[2021-06-19] MEDS: OMEPRAZOLE 20 MG CAPSULE PO SCH (08:15)
[2021-06-19] MEDS: MULTIVITAMINS WITH MINERALS, THERAPEUTIC TABLET PO SCH (08:15)
[2021-06-19] MEDS: BENZTROPINE MESYLATE 1 MG TABLET PO SCH ×2 (08:15→16:46)
[2021-06-19 08:35] VITALS: BP 111/73
[2021-06-19 16:27] VITALS: BP 108/62
[2021-06-20 08:25] VITALS: BP 103/67
[2021-06-20] MEDS: MULTIVITAMINS WITH MINERALS, THERAPEUTIC TABLET PO SCH (08:41)
[2021-06-20] MEDS: BENZTROPINE MESYLATE 1 MG TABLET PO SCH ×2 (08:41→17:09)
[2021-06-20] MEDS: VALPROIC ACID 250 MG/5 ML SOLUTION UDCUP PO SCH ×2 (08:41→21:21)
[2021-06-20] MEDS: OMEPRAZOLE 20 MG CAPSULE PO SCH (08:41)
[2021-06-20 16:30] VITALS: BP 102/64
[2021-06-20] MEDS: LORazepam 2 MG TABLET PO PRN (17:10)
[2021-06-20] MEDS: HALOPERIDOL 5 MG TABLET PO PRN (17:11)
[2021-06-20] MEDS: ZOLPIDEM TARTRATE 10 MG TABLET PO PRN (21:22)
[2021-06-21 00:29] VITALS: BP 90/65
[2021-06-21] MEDS: VALPROIC ACID 250 MG/5 ML SOLUTION UDCUP PO SCH ×2 (08:47→20:40)
[2021-06-21] MEDS: OMEPRAZOLE 20 MG CAPSULE PO SCH (08:47)
[2021-06-21] MEDS: MULTIVITAMINS WITH MINERALS, THERAPEUTIC TABLET PO SCH (08:47)
[2021-06-21] MEDS: BENZTROPINE MESYLATE 1 MG TABLET PO SCH ×2 (08:47→16:15)
[2021-06-21 10:08] VITALS: BP 90/60
[2021-06-21 16:18] VITALS: BP 117/62
[2021-06-22 01:26] VITALS: BP 136/86
[2021-06-22 08:44] VITALS: BP 97/64
[2021-06-22] MEDS: MULTIVITAMINS WITH MINERALS, THERAPEUTIC TABLET PO SCH (08:52)
[2021-06-22] MEDS: OMEPRAZOLE 20 MG CAPSULE PO SCH (08:52)
[2021-06-22] MEDS: BENZTROPINE MESYLATE 1 MG TABLET PO SCH ×2 (08:52→17:12)
[2021-06-22] MEDS: VALPROIC ACID 250 MG/5 ML SOLUTION UDCUP PO SCH ×2 (08:52→20:35)
[2021-06-22 16:23] VITALS: BP 108/60
[2021-06-22] MEDS: LORazepam 2 MG TABLET PO PRN (17:12)
[2021-06-22] MEDS: HALOPERIDOL 5 MG TABLET PO PRN (17:13)
[2021-06-23] MEDS: ZOLPIDEM TARTRATE 10 MG TABLET PO PRN (00:43)
[2021-06-23 04:05] VITALS: BP 107/71
[2021-06-23] MEDS: MULTIVITAMINS WITH MINERALS, THERAPEUTIC TABLET PO SCH (08:50)
[2021-06-23] MEDS: BENZTROPINE MESYLATE 1 MG TABLET PO SCH ×2 (08:50→16:27)
[2021-06-23] MEDS: VALPROIC ACID 250 MG/5 ML SOLUTION UDCUP PO SCH ×2 (08:50→20:58)
[2021-06-23] MEDS: OMEPRAZOLE 20 MG CAPSULE PO SCH (08:50)
[2021-06-23 08:52] VITALS: BP 86/55
[2021-06-23] MEDS: ESCITALOPRAM OXALATE 10 MG TABLET PO SCH (09:56)
[2021-06-23 16:28] VITALS: BP 100/66
[2021-06-24 06:29] VITALS: BP 110/67
[2021-06-24 08:23] VITALS: BP 104/69
[2021-06-24] MEDS: VALPROIC ACID 250 MG/5 ML SOLUTION UDCUP PO SCH ×2 (08:45→20:58)
[2021-06-24] MEDS: BENZTROPINE MESYLATE 1 MG TABLET PO SCH ×2 (08:46→17:04)
[2021-06-24] MEDS: OMEPRAZOLE 20 MG CAPSULE PO SCH (08:46)
[2021-06-24] MEDS: ESCITALOPRAM OXALATE 10 MG TABLET PO SCH (08:46)
[2021-06-24] MEDS: MULTIVITAMINS WITH MINERALS, THERAPEUTIC TABLET PO SCH (08:46)
[2021-06-24 16:23] VITALS: BP 103/60
[2021-06-24] MEDS ORDERED: VALPROIC ACID 250 MG/5 ML SOLUTION UDCUP PO SCH (17:00)
[2021-06-25 05:53] VITALS: BP 109/65
[2021-06-25 08:41] VITALS: BP 100/64
[2021-06-25] MEDS: VALPROIC ACID 250 MG/5 ML SOLUTION UDCUP PO SCH ×2 (08:42→20:19)
[2021-06-25] MEDS: ESCITALOPRAM OXALATE 10 MG TABLET PO SCH (08:43)
[2021-06-25] MEDS: OMEPRAZOLE 20 MG CAPSULE PO SCH (08:43)
[2021-06-25] MEDS: BENZTROPINE MESYLATE 1 MG TABLET PO SCH ×2 (08:43→16:59)
[2021-06-25] MEDS: MULTIVITAMINS WITH MINERALS, THERAPEUTIC TABLET PO SCH (08:43)
[2021-06-25 16:12] VITALS: BP 105/65
[2021-06-26 07:18] VITALS: BP 114/76
[2021-06-26] MEDS: OMEPRAZOLE 20 MG CAPSULE PO SCH (08:30)
[2021-06-26] MEDS: MULTIVITAMINS WITH MINERALS, THERAPEUTIC TABLET PO SCH (08:30)
[2021-06-26] MEDS: ESCITALOPRAM OXALATE 10 MG TABLET PO SCH (08:30)
[2021-06-26] MEDS: VALPROIC ACID 250 MG/5 ML SOLUTION UDCUP PO SCH ×2 (08:30→20:09)
[2021-06-26] MEDS: BENZTROPINE MESYLATE 1 MG TABLET PO SCH ×2 (08:30→16:26)
[2021-06-26 08:57] VITALS: BP 109/68
[2021-06-26 16:35] VITALS: BP 102/70
[2021-06-27 06:54] VITALS: BP 114/75
[2021-06-27 08:14] VITALS: BP 93/62
[2021-06-27] MEDS: MULTIVITAMINS WITH MINERALS, THERAPEUTIC TABLET PO SCH (08:45)
[2021-06-27] MEDS: ESCITALOPRAM OXALATE 10 MG TABLET PO SCH (08:45)
[2021-06-27] MEDS: VALPROIC ACID 250 MG/5 ML SOLUTION UDCUP PO SCH ×2 (08:45→20:25)
[2021-06-27] MEDS: BENZTROPINE MESYLATE 1 MG TABLET PO SCH ×2 (08:46→17:02)
[2021-06-27] MEDS: OMEPRAZOLE 20 MG CAPSULE PO SCH (08:47)
[2021-06-27 11:51] LABS: GLUCOMETER DEV NAME(LOC) POC.BV
[2021-06-27 16:20] VITALS: BP 102/64
[2021-06-27 16:22] VITALS: BP 102/64
[2021-06-28 00:16] VITALS: BP 102/64
[2021-06-28 08:17] VITALS: BP 112/70
[2021-06-28] MEDS: OMEPRAZOLE 20 MG CAPSULE PO SCH (08:40)
[2021-06-28] MEDS: MULTIVITAMINS WITH MINERALS, THERAPEUTIC TABLET PO SCH (08:40)
[2021-06-28] MEDS: VALPROIC ACID 250 MG/5 ML SOLUTION UDCUP PO SCH ×2 (08:41→20:43)
[2021-06-28] MEDS: BENZTROPINE MESYLATE 1 MG TABLET PO SCH ×2 (08:41→17:22)
[2021-06-28] MEDS: ESCITALOPRAM OXALATE 10 MG TABLET PO SCH (08:42)
[2021-06-28 16:26] VITALS: BP 108/62
[2021-06-29 01:21] VITALS: BP 125/74
[2021-06-29] MEDS: LORazepam 2 MG TABLET PO PRN (06:31)
[2021-06-29 08:20] VITALS: BP 92/60
[2021-06-29] MEDS: VALPROIC ACID 250 MG/5 ML SOLUTION UDCUP PO SCH ×2 (09:50→20:32)
[2021-06-29] MEDS: OMEPRAZOLE 20 MG CAPSULE PO SCH (09:50)
[2021-06-29] MEDS: BENZTROPINE MESYLATE 1 MG TABLET PO SCH ×2 (09:50→17:01)
[2021-06-29] MEDS: ESCITALOPRAM OXALATE 10 MG TABLET PO SCH (09:50)
[2021-06-29] MEDS: MULTIVITAMINS WITH MINERALS, THERAPEUTIC TABLET PO SCH (09:50)
[2021-06-29 16:23] VITALS: BP 106/62
[2021-06-30 06:14] VITALS: BP 109/65
[2021-06-30] MEDS: VALPROIC ACID 250 MG/5 ML SOLUTION UDCUP PO SCH ×2 (08:23→20:13)
[2021-06-30] MEDS: ESCITALOPRAM OXALATE 10 MG TABLET PO SCH (08:23)
[2021-06-30] MEDS: BENZTROPINE MESYLATE 1 MG TABLET PO SCH ×2 (08:23→17:01)
[2021-06-30] MEDS: MULTIVITAMINS WITH MINERALS, THERAPEUTIC TABLET PO SCH (08:23)
[2021-06-30] MEDS: OMEPRAZOLE 20 MG CAPSULE PO SCH (08:24)
[2021-06-30 08:59] VITALS: BP 110/70
[2021-06-30 16:18] VITALS: BP 104/62
[2021-07-01 00:39] VITALS: BP 100/68
[2021-07-01] MEDS: VALPROIC ACID 250 MG/5 ML SOLUTION UDCUP PO SCH ×2 (09:11→20:27)
[2021-07-01] MEDS: ESCITALOPRAM OXALATE 10 MG TABLET PO SCH (09:11)
[2021-07-01] MEDS: MULTIVITAMINS WITH MINERALS, THERAPEUTIC TABLET PO SCH (09:12)
[2021-07-01] MEDS: BENZTROPINE MESYLATE 1 MG TABLET PO SCH ×2 (09:12→16:26)
[2021-07-01] MEDS: OMEPRAZOLE 20 MG CAPSULE PO SCH (09:12)
[2021-07-01 17:42] VITALS: BP 82/56
[2021-07-02 05:01] VITALS: BP 104/62
[2021-07-02] MEDS: VALPROIC ACID 250 MG/5 ML SOLUTION UDCUP PO SCH ×2 (09:13→20:25)
[2021-07-02] MEDS: MULTIVITAMINS WITH MINERALS, THERAPEUTIC TABLET PO SCH (09:13)
[2021-07-02] MEDS: ESCITALOPRAM OXALATE 10 MG TABLET PO SCH (09:13)
[2021-07-02] MEDS: BENZTROPINE MESYLATE 1 MG TABLET PO SCH ×2 (09:13→16:18)
[2021-07-02] MEDS: OMEPRAZOLE 20 MG CAPSULE PO SCH (09:13)
[2021-07-02 10:35] VITALS: BP 110/68
[2021-07-02 16:32] VITALS: BP 103/71
[2021-07-03 04:48] VITALS: BP 110/70
[2021-07-03 08:23] VITALS: BP 97/58
[2021-07-03] MEDS: ESCITALOPRAM OXALATE 10 MG TABLET PO SCH (08:27)
[2021-07-03] MEDS: BENZTROPINE MESYLATE 1 MG TABLET PO SCH ×2 (08:27→16:50)
[2021-07-03] MEDS: VALPROIC ACID 250 MG/5 ML SOLUTION UDCUP PO SCH ×2 (08:27→20:35)
[2021-07-03] MEDS: OMEPRAZOLE 20 MG CAPSULE PO SCH (08:27)
[2021-07-03] MEDS: MULTIVITAMINS WITH MINERALS, THERAPEUTIC TABLET PO SCH (08:27)
[2021-07-03 16:16] VITALS: BP 102/61
[2021-07-04 07:02] VITALS: BP 98/69
[2021-07-04 08:02] LABS: COVID AG,FIA SOURCE NASAL SWAB
[2021-07-04 08:11] VITALS: BP 109/71
[2021-07-04] MEDS: VALPROIC ACID 250 MG/5 ML SOLUTION UDCUP PO SCH ×2 (08:30→20:06)
[2021-07-04] MEDS: ESCITALOPRAM OXALATE 10 MG TABLET PO SCH (08:31)
[2021-07-04] MEDS: MULTIVITAMINS WITH MINERALS, THERAPEUTIC TABLET PO SCH (08:31)
[2021-07-04] MEDS: OMEPRAZOLE 20 MG CAPSULE PO SCH (08:31)
[2021-07-04] MEDS: BENZTROPINE MESYLATE 1 MG TABLET PO SCH ×2 (08:31→16:34)
[2021-07-04 16:20] VITALS: BP 102/62
[2021-07-04] MEDS: ZOLPIDEM TARTRATE 10 MG TABLET PO PRN (23:53)
[2021-07-05 04:50] VITALS: BP 86/61
[2021-07-05] MEDS: BENZTROPINE MESYLATE 1 MG TABLET PO SCH ×2 (08:32→16:19)
[2021-07-05] MEDS: OMEPRAZOLE 20 MG CAPSULE PO SCH (08:32)
[2021-07-05] MEDS: VALPROIC ACID 250 MG/5 ML SOLUTION UDCUP PO SCH ×2 (08:32→20:55)
[2021-07-05] MEDS: MULTIVITAMINS WITH MINERALS, THERAPEUTIC TABLET PO SCH (08:32)
[2021-07-05] MEDS: ESCITALOPRAM OXALATE 10 MG TABLET PO SCH (08:32)
[2021-07-05 08:39] VITALS: BP 120/72
[2021-07-05 16:18] VITALS: BP 87/68
[2021-07-06 03:44] VITALS: BP 101/68
[2021-07-06] MEDS: BENZTROPINE MESYLATE 1 MG TABLET PO SCH ×2 (08:24→16:05)
[2021-07-06] MEDS: OMEPRAZOLE 20 MG CAPSULE PO SCH (08:25)
[2021-07-06] MEDS: ESCITALOPRAM OXALATE 10 MG TABLET PO SCH (08:25)
[2021-07-06] MEDS: VALPROIC ACID 250 MG/5 ML SOLUTION UDCUP PO SCH ×2 (08:25→20:43)
[2021-07-06] MEDS: MULTIVITAMINS WITH MINERALS, THERAPEUTIC TABLET PO SCH (08:25)
[2021-07-06 09:37] VITALS: BP 106/69
[2021-07-06 16:14] VITALS: BP 97/70
[2021-07-06] MEDS: ZOLPIDEM TARTRATE 10 MG TABLET PO PRN (21:36)
[2021-07-07 00:37] VITALS: BP 110/65
[2021-07-07] MEDS: OMEPRAZOLE 20 MG CAPSULE PO SCH (08:34)
[2021-07-07] MEDS: VALPROIC ACID 250 MG/5 ML SOLUTION UDCUP PO SCH ×2 (08:34→20:40)
[2021-07-07] MEDS: BENZTROPINE MESYLATE 1 MG TABLET PO SCH ×2 (08:35→16:26)
[2021-07-07] MEDS: MULTIVITAMINS WITH MINERALS, THERAPEUTIC TABLET PO SCH (08:35)
[2021-07-07] MEDS: ESCITALOPRAM OXALATE 10 MG TABLET PO SCH (08:35)
[2021-07-07 08:49] VITALS: BP 90/60
[2021-07-07] MEDS ORDERED: ESCITALOPRAM OXALATE 10 MG TABLET PO ONE (09:30)
[2021-07-07] MEDS: PALIPERIDONE PALMITATE 234 MG/1.5 ML SYRINGE IM SCH (12:21)
[2021-07-07 16:43] VITALS: BP 98/65
[2021-07-07] MEDS: ZOLPIDEM TARTRATE 10 MG TABLET PO PRN (20:40)
[2021-07-08 08:36] VITALS: BP 101/68
[2021-07-08] MEDS: ESCITALOPRAM OXALATE 10 MG TABLET PO SCH (08:59)
[2021-07-08] MEDS: VALPROIC ACID 250 MG/5 ML SOLUTION UDCUP PO SCH ×2 (08:59→20:44)
[2021-07-08] MEDS: BENZTROPINE MESYLATE 1 MG TABLET PO SCH ×2 (08:59→17:07)
[2021-07-08] MEDS: MULTIVITAMINS WITH MINERALS, THERAPEUTIC TABLET PO SCH (09:00)
[2021-07-08] MEDS: OMEPRAZOLE 20 MG CAPSULE PO SCH (09:00)
[2021-07-08 16:19] VITALS: BP 101/66
[2021-07-09 06:49] VITALS: BP 111/63
[2021-07-09 08:29] VITALS: BP 101/66
[2021-07-09] MEDS: VALPROIC ACID 250 MG/5 ML SOLUTION UDCUP PO SCH ×2 (08:30→20:04)
[2021-07-09] MEDS: OMEPRAZOLE 20 MG CAPSULE PO SCH (08:30)
[2021-07-09] MEDS: BENZTROPINE MESYLATE 1 MG TABLET PO SCH ×2 (08:30→16:01)
[2021-07-09] MEDS: ESCITALOPRAM OXALATE 10 MG TABLET PO SCH (08:30)
[2021-07-09] MEDS: MULTIVITAMINS WITH MINERALS, THERAPEUTIC TABLET PO SCH (08:30)
[2021-07-09 20:47] VITALS: BP 99/66
[2021-07-10 06:07] VITALS: BP 105/62
[2021-07-10] MEDS: OMEPRAZOLE 20 MG CAPSULE PO SCH (08:16)
[2021-07-10] MEDS: ESCITALOPRAM OXALATE 10 MG TABLET PO SCH (08:16)
[2021-07-10] MEDS: MULTIVITAMINS WITH MINERALS, THERAPEUTIC TABLET PO SCH (08:16)
[2021-07-10] MEDS: BENZTROPINE MESYLATE 1 MG TABLET PO SCH ×2 (08:16→17:16)
[2021-07-10] MEDS: VALPROIC ACID 250 MG/5 ML SOLUTION UDCUP PO SCH ×2 (08:16→20:36)
[2021-07-10 08:24] VITALS: BP 98/62
[2021-07-10 17:09] VITALS: BP 103/58
[2021-07-10] MEDS: ZOLPIDEM TARTRATE 10 MG TABLET PO PRN (21:42)
[2021-07-11 06:15] VITALS: BP 108/62
[2021-07-11 07:56] LABS: COVID AG,FIA SOURCE NASAL SWAB
[2021-07-11 08:28] VITALS: BP 92/61
[2021-07-11] MEDS: ESCITALOPRAM OXALATE 10 MG TABLET PO SCH (08:34)
[2021-07-11] MEDS: VALPROIC ACID 250 MG/5 ML SOLUTION UDCUP PO SCH ×2 (08:34→20:33)
[2021-07-11] MEDS: BENZTROPINE MESYLATE 1 MG TABLET PO SCH ×2 (08:34→16:18)
[2021-07-11] MEDS: OMEPRAZOLE 20 MG CAPSULE PO SCH (08:34)
[2021-07-11] MEDS: MULTIVITAMINS WITH MINERALS, THERAPEUTIC TABLET PO SCH (08:34)
[2021-07-11 16:33] VITALS: BP 83/53
[2021-07-12 00:19] VITALS: BP 82/64
[2021-07-12 08:15] VITALS: BP 97/58
[2021-07-12 08:21] VITALS: BP 97/54
[2021-07-12] MEDS: ESCITALOPRAM OXALATE 10 MG TABLET PO SCH (08:56)
[2021-07-12] MEDS: BENZTROPINE MESYLATE 1 MG TABLET PO SCH ×2 (08:56→16:28)
[2021-07-12] MEDS: MULTIVITAMINS WITH MINERALS, THERAPEUTIC TABLET PO SCH (08:56)
[2021-07-12] MEDS: VALPROIC ACID 250 MG/5 ML SOLUTION UDCUP PO SCH ×2 (08:56→20:43)
[2021-07-12] MEDS: OMEPRAZOLE 20 MG CAPSULE PO SCH (08:56)
[2021-07-12 16:33] VITALS: BP 114/68
[2021-07-13 04:03] VITALS: BP 110/66
[2021-07-13 08:17] VITALS: BP 97/67
[2021-07-13] MEDS: MULTIVITAMINS WITH MINERALS, THERAPEUTIC TABLET PO SCH (08:20)
[2021-07-13] MEDS: OMEPRAZOLE 20 MG CAPSULE PO SCH (08:20)
[2021-07-13] MEDS: VALPROIC ACID 250 MG/5 ML SOLUTION UDCUP PO SCH ×2 (08:20→20:25)
[2021-07-13] MEDS: ESCITALOPRAM OXALATE 10 MG TABLET PO SCH (08:21)
[2021-07-13] MEDS: BENZTROPINE MESYLATE 1 MG TABLET PO SCH ×2 (08:21→16:12)
[2021-07-13 16:27] VITALS: BP 91/66
[2021-07-13] MEDS: ZOLPIDEM TARTRATE 10 MG TABLET PO PRN (21:22)
[2021-07-14 05:24] VITALS: BP 106/67
[2021-07-14 08:29] VITALS: BP 108/60
[2021-07-14] MEDS: VALPROIC ACID 250 MG/5 ML SOLUTION UDCUP PO SCH ×2 (08:44→20:17)
[2021-07-14] MEDS: ESCITALOPRAM OXALATE 10 MG TABLET PO SCH (08:44)
[2021-07-14] MEDS: BENZTROPINE MESYLATE 1 MG TABLET PO SCH ×2 (08:44→16:55)
[2021-07-14] MEDS: OMEPRAZOLE 20 MG CAPSULE PO SCH (08:44)
[2021-07-14] MEDS: MULTIVITAMINS WITH MINERALS, THERAPEUTIC TABLET PO SCH (08:45)
[2021-07-14 16:24] VITALS: BP 87/56
[2021-07-15 07:03] VITALS: BP 108/64
[2021-07-15 07:09] VITALS: BP 108/63
[2021-07-15 08:35] VITALS: BP 95/63
[2021-07-15] MEDS: ESCITALOPRAM OXALATE 10 MG TABLET PO SCH (08:58)
[2021-07-15] MEDS: BENZTROPINE MESYLATE 1 MG TABLET PO SCH ×2 (08:58→16:35)
[2021-07-15] MEDS: VALPROIC ACID 250 MG/5 ML SOLUTION UDCUP PO SCH ×2 (08:58→20:38)
[2021-07-15] MEDS: MULTIVITAMINS WITH MINERALS, THERAPEUTIC TABLET PO SCH (08:58)
[2021-07-15] MEDS: OMEPRAZOLE 20 MG CAPSULE PO SCH (08:58)
[2021-07-15 16:32] VITALS: BP 120/64
[2021-07-15] MEDS: ZOLPIDEM TARTRATE 10 MG TABLET PO PRN (20:38)
[2021-07-16 00:46] VITALS: BP 129/76
[2021-07-16] MEDS: ESCITALOPRAM OXALATE 10 MG TABLET PO SCH (08:25)
[2021-07-16] MEDS: VALPROIC ACID 250 MG/5 ML SOLUTION UDCUP PO SCH ×2 (08:25→20:37)
[2021-07-16] MEDS: BENZTROPINE MESYLATE 1 MG TABLET PO SCH ×2 (08:25→16:16)
[2021-07-16] MEDS: MULTIVITAMINS WITH MINERALS, THERAPEUTIC TABLET PO SCH (08:25)
[2021-07-16] MEDS: OMEPRAZOLE 20 MG CAPSULE PO SCH (08:25)
[2021-07-16 09:35] VITALS: BP 91/60
[2021-07-16 16:36] VITALS: BP 95/59
[2021-07-17 07:03] VITALS: BP 100/60
[2021-07-17] MEDS: VALPROIC ACID 250 MG/5 ML SOLUTION UDCUP PO SCH ×2 (08:15→20:43)
[2021-07-17] MEDS: OMEPRAZOLE 20 MG CAPSULE PO SCH (08:15)
[2021-07-17] MEDS: MULTIVITAMINS WITH MINERALS, THERAPEUTIC TABLET PO SCH (08:15)
[2021-07-17] MEDS: BENZTROPINE MESYLATE 1 MG TABLET PO SCH ×2 (08:15→16:18)
[2021-07-17] MEDS: ESCITALOPRAM OXALATE 10 MG TABLET PO SCH (08:15)
[2021-07-17 09:27] VITALS: BP 92/64
[2021-07-17 16:22] VITALS: BP 95/61
[2021-07-18 00:44] VITALS: BP 100/61
[2021-07-18 08:25] VITALS: BP 104/65
[2021-07-18] MEDS: ESCITALOPRAM OXALATE 10 MG TABLET PO SCH (08:25)
[2021-07-18] MEDS: VALPROIC ACID 250 MG/5 ML SOLUTION UDCUP PO SCH ×2 (08:25→20:29)
[2021-07-18] MEDS: MULTIVITAMINS WITH MINERALS, THERAPEUTIC TABLET PO SCH (08:25)
[2021-07-18] MEDS: OMEPRAZOLE 20 MG CAPSULE PO SCH (08:25)
[2021-07-18] MEDS: BENZTROPINE MESYLATE 1 MG TABLET PO SCH ×2 (08:25→16:57)
[2021-07-18 16:24] VITALS: BP 103/61
[2021-07-18 17:16] LABS: GLUCOMETER DEV NAME(LOC) POC.BV
[2021-07-18] MEDS: ZOLPIDEM TARTRATE 10 MG TABLET PO PRN (20:29)
[2021-07-19 01:19] VITALS: BP 106/63
[2021-07-19 08:22] VITALS: BP 103/64
[2021-07-19] MEDS: OMEPRAZOLE 20 MG CAPSULE PO SCH (08:41)
[2021-07-19] MEDS: ESCITALOPRAM OXALATE 10 MG TABLET PO SCH (08:41)
[2021-07-19] MEDS: VALPROIC ACID 250 MG/5 ML SOLUTION UDCUP PO SCH ×2 (08:41→20:48)
[2021-07-19] MEDS: MULTIVITAMINS WITH MINERALS, THERAPEUTIC TABLET PO SCH (08:41)
[2021-07-19] MEDS: BENZTROPINE MESYLATE 1 MG TABLET PO SCH ×2 (08:41→16:20)
[2021-07-19 13:00] LABS: GLUCOMETER DEV NAME(LOC) POC.BV
[2021-07-19 16:22] VITALS: BP 100/61
[2021-07-19] MEDS: ZOLPIDEM TARTRATE 10 MG TABLET PO PRN (20:48)
[2021-07-20 01:51] VITALS: BP 112/64
[2021-07-20] MEDS: MULTIVITAMINS WITH MINERALS, THERAPEUTIC TABLET PO SCH (07:57)
[2021-07-20] MEDS: VALPROIC ACID 250 MG/5 ML SOLUTION UDCUP PO SCH ×2 (07:57→20:59)
[2021-07-20] MEDS: ESCITALOPRAM OXALATE 10 MG TABLET PO SCH (07:57)
[2021-07-20] MEDS: BENZTROPINE MESYLATE 1 MG TABLET PO SCH ×2 (07:57→17:08)
[2021-07-20] MEDS: OMEPRAZOLE 20 MG CAPSULE PO SCH (07:57)
[2021-07-20 08:43] VITALS: BP 99/62
[2021-07-20] MEDS ORDERED: INFLUENZA VIRUS VACCINE QVS 2021-22 (6MO+)/PF 60 MCG/0.5 ML SYRINGE IM. ONE (12:45)
[2021-07-20 16:19] VITALS: BP 97/63
[2021-07-20] MEDS: ZOLPIDEM TARTRATE 10 MG TABLET PO PRN (21:47)
[2021-07-21 04:43] VITALS: BP 102/68
[2021-07-21 05:00] VITALS: BP 100/63
[2021-07-21] MEDS: OMEPRAZOLE 20 MG CAPSULE PO SCH (08:09)
[2021-07-21] MEDS: ESCITALOPRAM OXALATE 10 MG TABLET PO SCH (08:09)
[2021-07-21] MEDS: MULTIVITAMINS WITH MINERALS, THERAPEUTIC TABLET PO SCH (08:09)
[2021-07-21] MEDS: VALPROIC ACID 250 MG/5 ML SOLUTION UDCUP PO SCH ×2 (08:09→20:44)
[2021-07-21] MEDS: BENZTROPINE MESYLATE 1 MG TABLET PO SCH ×2 (08:09→16:54)
[2021-07-21 08:29] VITALS: BP 118/69
[2021-07-21 16:16] VITALS: BP 95/65
[2021-07-21] MEDS ORDERED: OMEP20 PO (16:42)
[2021-07-21] MEDS ORDERED: VALP250S23 PO (16:42)
[2021-07-21] MEDS ORDERED: MULT-1239 PO (16:42)
[2021-07-21] MEDS ORDERED: BENZ1TAB10 PO (16:42)
[2021-07-21] MEDS ORDERED: PALI234D IM (16:42)
[2021-07-21] MEDS ORDERED: ESCI10 PO (16:42)
[2021-07-22 05:51] VITALS: BP 103/67
[2021-07-22 08:21] VITALS: BP 100/62
[2021-07-22] MEDS: VALPROIC ACID 250 MG/5 ML SOLUTION UDCUP PO SCH ×2 (08:44→20:54)
[2021-07-22] MEDS: OMEPRAZOLE 20 MG CAPSULE PO SCH (08:44)
[2021-07-22] MEDS: BENZTROPINE MESYLATE 1 MG TABLET PO SCH ×2 (08:44→17:01)
[2021-07-22] MEDS: MULTIVITAMINS WITH MINERALS, THERAPEUTIC TABLET PO SCH (08:44)
[2021-07-22] MEDS: ESCITALOPRAM OXALATE 10 MG TABLET PO SCH (08:44)
[2021-07-22 11:36] LABS: GLUCOMETER DEV NAME(LOC) POC.BV
[2021-07-22 12:25] VITALS: BP_SYST 108; BP_SYST 121; BP_DIAS 71; BP_DIAS 75
[2021-07-22 16:26] VITALS: BP 87/61
[2021-07-22] MEDS: ACETAMINOPHEN 325 MG TABLET PO PRN ×2 (17:01→19:20)
[2021-07-22 20:09] VITALS: BP 80/49
[2021-07-23 06:02] VITALS: BP 102/62
[2021-07-23] MEDS: BENZTROPINE MESYLATE 1 MG TABLET PO SCH ×2 (08:52→16:40)
[2021-07-23] MEDS: MULTIVITAMINS WITH MINERALS, THERAPEUTIC TABLET PO SCH (08:53)
[2021-07-23] MEDS: OMEPRAZOLE 20 MG CAPSULE PO SCH (08:53)
[2021-07-23] MEDS: ESCITALOPRAM OXALATE 10 MG TABLET PO SCH (08:53)
[2021-07-23] MEDS: VALPROIC ACID 250 MG/5 ML SOLUTION UDCUP PO SCH ×2 (08:53→20:27)
[2021-07-23 09:02] VITALS: BP 98/62
[2021-07-23 12:31] VITALS: BP 114/70
[2021-07-23] MEDS: LORazepam 2 MG TABLET PO PRN ×2 (13:50→23:46)
[2021-07-23 17:17] VITALS: BP 100/68
[2021-07-23] MEDS: ZOLPIDEM TARTRATE 10 MG TABLET PO PRN (20:27)
[2021-07-23 20:46] VITALS: BP 101/68
[2021-07-24 02:25] VITALS: BP 108/62
[2021-07-24 07:14] VITALS: BP 112/64
[2021-07-24] MEDS: BENZTROPINE MESYLATE 1 MG TABLET PO SCH ×2 (08:01→16:26)
[2021-07-24] MEDS: MULTIVITAMINS WITH MINERALS, THERAPEUTIC TABLET PO SCH (08:01)
[2021-07-24] MEDS: VALPROIC ACID 250 MG/5 ML SOLUTION UDCUP PO SCH ×2 (08:01→20:20)
[2021-07-24] MEDS: OMEPRAZOLE 20 MG CAPSULE PO SCH (08:01)
[2021-07-24] MEDS: ESCITALOPRAM OXALATE 10 MG TABLET PO SCH (08:01)
[2021-07-24 08:18] VITALS: BP 86/57
[2021-07-24] MEDS: LORazepam 2 MG TABLET PO PRN ×2 (08:30→16:26)
[2021-07-24 12:12] VITALS: BP 97/64
[2021-07-24 16:08] VITALS: BP 101/67
[2021-07-24 20:07] VITALS: BP 101/65
[2021-07-25 01:51] VITALS: BP 106/61
[2021-07-25 04:30] VITALS: BP 98/64
[2021-07-25] MEDS: VALPROIC ACID 250 MG/5 ML SOLUTION UDCUP PO SCH ×2 (08:52→20:01)
[2021-07-25] MEDS: OMEPRAZOLE 20 MG CAPSULE PO SCH (08:52)
[2021-07-25] MEDS: ESCITALOPRAM OXALATE 10 MG TABLET PO SCH (08:52)
[2021-07-25] MEDS: MULTIVITAMINS WITH MINERALS, THERAPEUTIC TABLET PO SCH (08:52)
[2021-07-25] MEDS: BENZTROPINE MESYLATE 1 MG TABLET PO SCH ×2 (08:52→16:05)
[2021-07-25 10:27] VITALS: BP 87/52
[2021-07-25] MEDS: LORazepam 2 MG TABLET PO PRN (12:32)
[2021-07-25 13:15] VITALS: BP 97/64
[2021-07-25 16:10] VITALS: BP 91/58
[2021-07-25 20:10] VITALS: BP 90/58
[2021-07-26 04:08] VITALS: BP 99/69
[2021-07-26 08:17] VITALS: BP 92/58
[2021-07-26] MEDS: OMEPRAZOLE 20 MG CAPSULE PO SCH (08:47)
[2021-07-26] MEDS: MULTIVITAMINS WITH MINERALS, THERAPEUTIC TABLET PO SCH (08:47)
[2021-07-26] MEDS: ESCITALOPRAM OXALATE 10 MG TABLET PO SCH (08:47)
[2021-07-26] MEDS: VALPROIC ACID 250 MG/5 ML SOLUTION UDCUP PO SCH ×2 (08:47→20:18)
[2021-07-26] MEDS: BENZTROPINE MESYLATE 1 MG TABLET PO SCH ×2 (08:47→16:27)
[2021-07-26 12:35] VITALS: BP 90/56
[2021-07-26 16:12] VITALS: BP 93/60
[2021-07-26 18:02] VITALS: BP 129/86
[2021-07-26] MEDS: LORazepam 2 MG TABLET PO PRN (18:02)
[2021-07-26 20:14] VITALS: BP 100/64
[2021-07-27 01:11] VITALS: BP 100/64
[2021-07-27 05:00] VITALS: BP 102/64
[2021-07-27] MEDS: LORazepam 2 MG TABLET PO PRN (06:22)
[2021-07-27 08:24] VITALS: BP 91/60
[2021-07-27] MEDS: MULTIVITAMINS WITH MINERALS, THERAPEUTIC TABLET PO SCH (08:25)
[2021-07-27] MEDS: ESCITALOPRAM OXALATE 10 MG TABLET PO SCH (08:25)
[2021-07-27] MEDS: OMEPRAZOLE 20 MG CAPSULE PO SCH (08:25)
[2021-07-27] MEDS: VALPROIC ACID 250 MG/5 ML SOLUTION UDCUP PO SCH ×2 (08:25→20:52)
[2021-07-27] MEDS: BENZTROPINE MESYLATE 1 MG TABLET PO SCH ×2 (08:25→16:46)
[2021-07-27 12:27] VITALS: BP 87/56
[2021-07-27 16:11] VITALS: BP 96/60
[2021-07-27 20:11] VITALS: BP 100/62
[2021-07-27] MEDS: ZOLPIDEM TARTRATE 10 MG TABLET PO PRN (20:53)
[2021-07-28 01:05] VITALS: BP 103/61
[2021-07-28 06:41] VITALS: BP 105/71
[2021-07-28] MEDS: VALPROIC ACID 250 MG/5 ML SOLUTION UDCUP PO SCH ×2 (08:05→20:45)
[2021-07-28] MEDS: ESCITALOPRAM OXALATE 10 MG TABLET PO SCH (08:05)
[2021-07-28] MEDS: MULTIVITAMINS WITH MINERALS, THERAPEUTIC TABLET PO SCH (08:05)
[2021-07-28] MEDS: BENZTROPINE MESYLATE 1 MG TABLET PO SCH ×2 (08:05→16:56)
[2021-07-28] MEDS: OMEPRAZOLE 20 MG CAPSULE PO SCH (08:05)
[2021-07-28 08:31] VITALS: BP 94/62
[2021-07-28 12:25] VITALS: BP 92/60
[2021-07-28 16:11] VITALS: BP 91/61
[2021-07-28 20:10] VITALS: BP 106/60
[2021-07-28] MEDS: LORazepam 2 MG TABLET PO PRN (20:45)
[2021-07-29 01:11] VITALS: BP 103/60
[2021-07-29 05:04] VITALS: BP 104/59
[2021-07-29 08:08] VITALS: BP 99/67
[2021-07-29] MEDS: BENZTROPINE MESYLATE 1 MG TABLET PO SCH ×2 (08:25→16:49)
[2021-07-29] MEDS: ESCITALOPRAM OXALATE 10 MG TABLET PO SCH (08:26)
[2021-07-29] MEDS: MULTIVITAMINS WITH MINERALS, THERAPEUTIC TABLET PO SCH (08:26)
[2021-07-29] MEDS: OMEPRAZOLE 20 MG CAPSULE PO SCH (08:26)
[2021-07-29] MEDS: VALPROIC ACID 250 MG/5 ML SOLUTION UDCUP PO SCH ×2 (08:26→20:41)
[2021-07-29 11:51] LABS: GLUCOMETER DEV NAME(LOC) POC.BV
[2021-07-29 12:49] VITALS: BP 94/60
[2021-07-29 16:13] VITALS: BP 101/71
[2021-07-29] MEDS: LORazepam 2 MG TABLET PO PRN (16:49)
[2021-07-29 20:12] VITALS: BP 106/60
[2021-07-30 00:35] VITALS: BP 104/68
[2021-07-30 04:02] VITALS: BP 102/59
[2021-07-30] MEDS: ESCITALOPRAM OXALATE 10 MG TABLET PO SCH (08:16)
[2021-07-30] MEDS: MULTIVITAMINS WITH MINERALS, THERAPEUTIC TABLET PO SCH (08:16)
[2021-07-30] MEDS: BENZTROPINE MESYLATE 1 MG TABLET PO SCH ×2 (08:16→16:47)
[2021-07-30] MEDS: VALPROIC ACID 250 MG/5 ML SOLUTION UDCUP PO SCH ×2 (08:16→20:18)
[2021-07-30] MEDS: OMEPRAZOLE 20 MG CAPSULE PO SCH (08:16)
[2021-07-30 08:24] VITALS: BP 132/70
[2021-07-30 12:29] VITALS: BP 130/68
[2021-07-30 16:08] VITALS: BP 99/62
[2021-07-30 20:31] VITALS: BP 96/60
[2021-07-31 00:44] VITALS: BP 101/68
[2021-07-31 04:10] VITALS: BP 104/66
[2021-07-31] MEDS: ESCITALOPRAM OXALATE 10 MG TABLET PO SCH (08:25)
[2021-07-31] MEDS: VALPROIC ACID 250 MG/5 ML SOLUTION UDCUP PO SCH ×2 (08:25→20:32)
[2021-07-31] MEDS: MULTIVITAMINS WITH MINERALS, THERAPEUTIC TABLET PO SCH (08:25)
[2021-07-31] MEDS: OMEPRAZOLE 20 MG CAPSULE PO SCH (08:25)
[2021-07-31] MEDS: BENZTROPINE MESYLATE 1 MG TABLET PO SCH ×2 (08:25→16:40)
[2021-07-31 09:02] VITALS: BP 98/56
[2021-07-31 12:23] VITALS: BP 102/60
[2021-07-31 16:07] VITALS: BP 92/57
[2021-07-31 20:11] VITALS: BP 106/62
[2021-08-01 00:10] VITALS: BP 99/62
[2021-08-01] MEDS: OMEPRAZOLE 20 MG CAPSULE PO SCH (08:04)
[2021-08-01] MEDS: MULTIVITAMINS WITH MINERALS, THERAPEUTIC TABLET PO SCH (08:04)
[2021-08-01] MEDS: VALPROIC ACID 250 MG/5 ML SOLUTION UDCUP PO SCH ×2 (08:04→20:23)
[2021-08-01] MEDS: BENZTROPINE MESYLATE 1 MG TABLET PO SCH ×2 (08:04→16:49)
[2021-08-01] MEDS: ESCITALOPRAM OXALATE 10 MG TABLET PO SCH (08:04)
[2021-08-01 08:54] VITALS: BP 98/59
[2021-08-01 13:06] VITALS: BP 102/63
[2021-08-01 16:08] VITALS: BP 96/60
[2021-08-01] MEDS: HALOPERIDOL 5 MG TABLET PO PRN (16:49)
[2021-08-01 20:09] VITALS: BP 73/62
[2021-08-02] VITALS (7 sets, daily range): BP systolic 99–105; BP diastolic 60–70
[2021-08-02] MEDS: VALPROIC ACID 250 MG/5 ML SOLUTION UDCUP PO SCH ×3 (08:25→20:04)
[2021-08-02] MEDS: MULTIVITAMINS WITH MINERALS, THERAPEUTIC TABLET PO SCH (08:26)
[2021-08-02] MEDS: ESCITALOPRAM OXALATE 10 MG TABLET PO SCH (08:26)
[2021-08-02] MEDS: OMEPRAZOLE 20 MG CAPSULE PO SCH (08:26)
[2021-08-02] MEDS: BENZTROPINE MESYLATE 1 MG TABLET PO SCH ×2 (08:26→16:54)
[2021-08-03 04:03] VITALS: BP 106/66
[2021-08-03 04:04] VITALS: BP 109/58
[2021-08-03] MEDS: ESCITALOPRAM OXALATE 10 MG TABLET PO SCH (08:00)
[2021-08-03] MEDS: BENZTROPINE MESYLATE 1 MG TABLET PO SCH ×2 (08:00→16:45)
[2021-08-03] MEDS: OMEPRAZOLE 20 MG CAPSULE PO SCH (08:00)
[2021-08-03] MEDS: MULTIVITAMINS WITH MINERALS, THERAPEUTIC TABLET PO SCH (08:00)
[2021-08-03] MEDS: VALPROIC ACID 250 MG/5 ML SOLUTION UDCUP PO SCH ×2 (08:01→20:44)
[2021-08-03 08:21] VITALS: BP 96/61
[2021-08-03 10:06] LABS: GLUCOMETER DEV NAME(LOC) POC.BV
[2021-08-03 16:29] VITALS: BP 91/62
[2021-08-04 00:27] VITALS: BP 102/57
[2021-08-04] MEDS: VALPROIC ACID 250 MG/5 ML SOLUTION UDCUP PO SCH ×2 (08:19→20:28)
[2021-08-04] MEDS: OMEPRAZOLE 20 MG CAPSULE PO SCH (08:20)
[2021-08-04] MEDS: ESCITALOPRAM OXALATE 10 MG TABLET PO SCH (08:21)
[2021-08-04] MEDS: MULTIVITAMINS WITH MINERALS, THERAPEUTIC TABLET PO SCH (08:21)
[2021-08-04] MEDS: BENZTROPINE MESYLATE 1 MG TABLET PO SCH ×2 (08:21→16:35)
[2021-08-04 09:07] VITALS: BP 108/70
[2021-08-04] MEDS: PALIPERIDONE PALMITATE 234 MG/1.5 ML SYRINGE IM SCH (09:57)
[2021-08-04 16:32] VITALS: BP 102/65
[2021-08-05 00:23] VITALS: BP 105/62
[2021-08-05] MEDS: MULTIVITAMINS WITH MINERALS, THERAPEUTIC TABLET PO SCH (08:57)
[2021-08-05] MEDS: OMEPRAZOLE 20 MG CAPSULE PO SCH (08:57)
[2021-08-05] MEDS: VALPROIC ACID 250 MG/5 ML SOLUTION UDCUP PO SCH ×2 (08:57→20:37)
[2021-08-05] MEDS: ESCITALOPRAM OXALATE 10 MG TABLET PO SCH (08:57)
[2021-08-05] MEDS: BENZTROPINE MESYLATE 1 MG TABLET PO SCH ×2 (08:57→16:40)
[2021-08-05 10:37] VITALS: BP 95/78
[2021-08-05 16:19] VITALS: BP_SYST 101; BP_SYST 80; BP_SYST 90; BP_DIAS 60; BP_DIAS 62
[2021-08-06 06:08] VITALS: BP 105/61
[2021-08-06] MEDS: VALPROIC ACID 250 MG/5 ML SOLUTION UDCUP PO SCH ×2 (08:14→20:04)
[2021-08-06] MEDS: ESCITALOPRAM OXALATE 10 MG TABLET PO SCH (08:14)
[2021-08-06] MEDS: OMEPRAZOLE 20 MG CAPSULE PO SCH (08:14)
[2021-08-06] MEDS: MULTIVITAMINS WITH MINERALS, THERAPEUTIC TABLET PO SCH (08:14)
[2021-08-06] MEDS: BENZTROPINE MESYLATE 1 MG TABLET PO SCH ×2 (08:14→16:29)
[2021-08-06 09:56] VITALS: BP 100/63
[2021-08-06 10:00] VITALS: BP 104/68
[2021-08-06 16:18] VITALS: BP 103/61
[2021-08-07 02:07] VITALS: BP 108/64
[2021-08-07] MEDS: VALPROIC ACID 250 MG/5 ML SOLUTION UDCUP PO SCH ×2 (08:15→21:31)
[2021-08-07] MEDS: OMEPRAZOLE 20 MG CAPSULE PO SCH (08:15)
[2021-08-07] MEDS: MULTIVITAMINS WITH MINERALS, THERAPEUTIC TABLET PO SCH (08:15)
[2021-08-07] MEDS: BENZTROPINE MESYLATE 1 MG TABLET PO SCH ×2 (08:15→17:11)
[2021-08-07] MEDS: ESCITALOPRAM OXALATE 10 MG TABLET PO SCH (08:15)
[2021-08-07 08:35] VITALS: BP 112/66
[2021-08-07 16:59] VITALS: BP 101/60
[2021-08-08 04:01] VITALS: BP 100/62
[2021-08-08 08:22] VITALS: BP 118/79
[2021-08-08] MEDS: ESCITALOPRAM OXALATE 10 MG TABLET PO SCH (08:40)
[2021-08-08] MEDS: BENZTROPINE MESYLATE 1 MG TABLET PO SCH ×2 (08:40→17:02)
[2021-08-08] MEDS: MULTIVITAMINS WITH MINERALS, THERAPEUTIC TABLET PO SCH (08:40)
[2021-08-08] MEDS: OMEPRAZOLE 20 MG CAPSULE PO SCH (08:40)
[2021-08-08] MEDS: VALPROIC ACID 250 MG/5 ML SOLUTION UDCUP PO SCH ×2 (08:41→20:37)
[2021-08-08 16:12] VITALS: BP 101/62
[2021-08-09 04:22] VITALS: BP 104/68
[2021-08-09 08:31] VITALS: BP 103/64
[2021-08-09] MEDS: BENZTROPINE MESYLATE 1 MG TABLET PO SCH ×2 (09:13→17:09)
[2021-08-09] MEDS: VALPROIC ACID 250 MG/5 ML SOLUTION UDCUP PO SCH ×2 (09:13→21:04)
[2021-08-09] MEDS: OMEPRAZOLE 20 MG CAPSULE PO SCH (09:13)
[2021-08-09] MEDS: ESCITALOPRAM OXALATE 10 MG TABLET PO SCH (09:13)
[2021-08-09] MEDS: MULTIVITAMINS WITH MINERALS, THERAPEUTIC TABLET PO SCH (09:13)
[2021-08-09 16:56] VITALS: BP 100/53
[2021-08-10 06:20] VITALS: BP 105/66
[2021-08-10 08:35] VITALS: BP 86/57
[2021-08-10] MEDS: BENZTROPINE MESYLATE 1 MG TABLET PO SCH ×2 (08:48→16:48)
[2021-08-10] MEDS: ESCITALOPRAM OXALATE 10 MG TABLET PO SCH (08:48)
[2021-08-10] MEDS: OMEPRAZOLE 20 MG CAPSULE PO SCH (08:48)
[2021-08-10] MEDS: MULTIVITAMINS WITH MINERALS, THERAPEUTIC TABLET PO SCH (08:48)
[2021-08-10] MEDS: VALPROIC ACID 250 MG/5 ML SOLUTION UDCUP PO SCH ×2 (08:48→21:09)
[2021-08-10 16:20] VITALS: BP 100/60
[2021-08-11 05:26] VITALS: BP 107/61
[2021-08-11 08:28] VITALS: BP 119/86
[2021-08-11] MEDS: OMEPRAZOLE 20 MG CAPSULE PO SCH (09:10)
[2021-08-11] MEDS: MULTIVITAMINS WITH MINERALS, THERAPEUTIC TABLET PO SCH (09:10)
[2021-08-11] MEDS: BENZTROPINE MESYLATE 1 MG TABLET PO SCH ×2 (09:10→16:53)
[2021-08-11] MEDS: ESCITALOPRAM OXALATE 10 MG TABLET PO SCH (09:10)
[2021-08-11] MEDS: VALPROIC ACID 250 MG/5 ML SOLUTION UDCUP PO SCH ×2 (09:11→20:38)
[2021-08-11 11:16] LABS: GLUCOMETER DEV NAME(LOC) POC.BV
[2021-08-11 16:20] VITALS: BP 108/60
[2021-08-12 05:33] VITALS: BP 104/61
[2021-08-12 08:25] VITALS: BP 103/60
[2021-08-12] MEDS: ESCITALOPRAM OXALATE 10 MG TABLET PO SCH (09:04)
[2021-08-12] MEDS: VALPROIC ACID 250 MG/5 ML SOLUTION UDCUP PO SCH ×2 (09:04→20:50)
[2021-08-12] MEDS: BENZTROPINE MESYLATE 1 MG TABLET PO SCH ×2 (09:05→16:59)
[2021-08-12] MEDS: MULTIVITAMINS WITH MINERALS, THERAPEUTIC TABLET PO SCH (09:05)
[2021-08-12] MEDS: OMEPRAZOLE 20 MG CAPSULE PO SCH (09:05)
[2021-08-12] MEDS ORDERED: TUBERCULIN, PURIFIED PROTEIN DERIVATIVE 5 TU/0.1 ML SYRINGE ID ONE (15:15)
[2021-08-12 16:26] VITALS: BP 90/62
[2021-08-13 04:28] VITALS: BP 99/69
[2021-08-13 08:25] VITALS: BP 94/64
[2021-08-13] MEDS: MULTIVITAMINS WITH MINERALS, THERAPEUTIC TABLET PO SCH (09:21)
[2021-08-13] MEDS: OMEPRAZOLE 20 MG CAPSULE PO SCH (09:21)
[2021-08-13] MEDS: BENZTROPINE MESYLATE 1 MG TABLET PO SCH ×2 (09:21→16:54)
[2021-08-13] MEDS: ESCITALOPRAM OXALATE 10 MG TABLET PO SCH (09:21)
[2021-08-13] MEDS: VALPROIC ACID 250 MG/5 ML SOLUTION UDCUP PO SCH ×2 (09:22→20:35)
[2021-08-13 16:26] VITALS: BP 90/60
[2021-08-14 02:05] VITALS: BP 102/60
[2021-08-14 08:13] VITALS: BP 102/60
[2021-08-14] MEDS: MULTIVITAMINS WITH MINERALS, THERAPEUTIC TABLET PO SCH (08:42)
[2021-08-14] MEDS: VALPROIC ACID 250 MG/5 ML SOLUTION UDCUP PO SCH ×2 (08:42→20:50)
[2021-08-14] MEDS: OMEPRAZOLE 20 MG CAPSULE PO SCH (08:42)
[2021-08-14] MEDS: BENZTROPINE MESYLATE 1 MG TABLET PO SCH ×2 (08:42→17:02)
[2021-08-14] MEDS: ESCITALOPRAM OXALATE 10 MG TABLET PO SCH (08:42)
[2021-08-14 16:18] VITALS: BP 94/61
[2021-08-15 04:58] VITALS: BP 99/62
[2021-08-15 08:35] VITALS: BP 123/74
[2021-08-15] MEDS: BENZTROPINE MESYLATE 1 MG TABLET PO SCH ×2 (09:00→17:34)
[2021-08-15] MEDS: OMEPRAZOLE 20 MG CAPSULE PO SCH (09:01)
[2021-08-15] MEDS: MULTIVITAMINS WITH MINERALS, THERAPEUTIC TABLET PO SCH (09:01)
[2021-08-15] MEDS: ESCITALOPRAM OXALATE 10 MG TABLET PO SCH (09:01)
[2021-08-15] MEDS: VALPROIC ACID 250 MG/5 ML SOLUTION UDCUP PO SCH ×2 (09:01→21:02)
[2021-08-15 17:20] VITALS: BP 96/62
[2021-08-16 04:22] VITALS: BP 106/64
[2021-08-16 08:38] VITALS: BP 100/60
[2021-08-16] MEDS: MULTIVITAMINS WITH MINERALS, THERAPEUTIC TABLET PO SCH (08:51)
[2021-08-16] MEDS: VALPROIC ACID 250 MG/5 ML SOLUTION UDCUP PO SCH ×2 (08:51→20:38)
[2021-08-16] MEDS: ESCITALOPRAM OXALATE 10 MG TABLET PO SCH (08:51)
[2021-08-16] MEDS: BENZTROPINE MESYLATE 1 MG TABLET PO SCH ×2 (08:51→16:31)
[2021-08-16] MEDS: OMEPRAZOLE 20 MG CAPSULE PO SCH (08:51)
[2021-08-16 13:26] LABS: GLUCOMETER DEV NAME(LOC) POC.BV
[2021-08-16 16:28] VITALS: BP 102/64
[2021-08-16] MEDS ORDERED: COVID-19 VACCINE, MRNA(PFIZER)/PF 30 MCG/0.3 ML VIAL IM. ONE (21:45)
[2021-08-17 05:03] VITALS: BP 100/56
[2021-08-17] MEDS: ESCITALOPRAM OXALATE 10 MG TABLET PO SCH (08:49)
[2021-08-17] MEDS: VALPROIC ACID 250 MG/5 ML SOLUTION UDCUP PO SCH ×2 (08:49→20:01)
[2021-08-17] MEDS: BENZTROPINE MESYLATE 1 MG TABLET PO SCH ×2 (08:49→16:23)
[2021-08-17] MEDS: OMEPRAZOLE 20 MG CAPSULE PO SCH (08:49)
[2021-08-17] MEDS: MULTIVITAMINS WITH MINERALS, THERAPEUTIC TABLET PO SCH (08:49)
[2021-08-17 09:09] VITALS: BP 100/58
[2021-08-17 16:45] VITALS: BP 107/60
[2021-08-18 06:35] VITALS: BP 105/63
[2021-08-18] MEDS: VALPROIC ACID 250 MG/5 ML SOLUTION UDCUP PO SCH (08:05)
[2021-08-18] MEDS: ESCITALOPRAM OXALATE 10 MG TABLET PO SCH (08:05)
[2021-08-18] MEDS: MULTIVITAMINS WITH MINERALS, THERAPEUTIC TABLET PO SCH (08:05)
[2021-08-18] MEDS: BENZTROPINE MESYLATE 1 MG TABLET PO SCH (08:05)
[2021-08-18] MEDS: OMEPRAZOLE 20 MG CAPSULE PO SCH (08:05)
[2021-08-18 08:20] VITALS: BP 100/60
== END 2021-08-18 09:00 | DRG 885 ==
LOC: EMS 15:48 → B3A 03-12 14:14
PROVIDERS: ADMIT Psychiatry & Neurology Psychiatry; ATTEND Psychiatry & Neurology Psychiatry
DX: F20.0 Paranoid schizophrenia (principal); E43 Unspecified severe protein-calorie malnutrition; U07.1 COVID-19; E87.1 Hypo-osmolality and hyponatremia; G71.00 Muscular dystrophy, unspecified; D64.9 Anemia, unspecified; F32.A Depression, unspecified; I95.9 Hypotension, unspecified; E05.00 Thyrotoxicosis with diffuse goiter without thyrotoxic crisis or storm; Z59.00 Homelessness unspecified; Z63.8 Other specified problems related to primary support group; Z79.899 Other long term (current) drug therapy; Z68.25 Body mass index [BMI] 25.0-25.9, adult
CPT/HCPCS: 0004A; 80048; 80053; 80061; 80164; 85025; 87081; 90686; 91300; 93970; 99285; G0480; J1200; J1630; J2060; J2405; Q0162